=== PATIENT | female | born 1955 | race Caucasian/White ===

== ENCOUNTER → 2018-05-10 10:47 | Outpatient (CLI) | payer OTHER, SELFPAY ==
[2018-05-10 11:53] LABS: Add Manual Diff / Slide Review NO; Basophils Absolute Auto 0 /uL (0-100); Basophils Percent Auto 0.6 % (0-2); Eosinophils Absolute Auto 300 /uL (0-450); Eosinophils Percent Auto 4.4 % (2-4); Hematocrit 38.4 % (36-46); Hemoglobin 12.6 g/dL (12.0-16.0); Lymphocytes Absolute Auto 1800 /uL (1100-4500); Lymphocytes Percent Auto 26.9 % (25-40); Mean Corpuscular HGB Conc 32.7 % (30-36); Mean Corpuscular Hemoglobin 28.6 PG (26-34); Mean Corpuscular Volume 87.4 fL (80-100); Monocytes Absolute Auto 500 /uL (0-900); Monocytes Percent Auto 6.8 % (3-14); Neutrophils Absolute Auto 4100 /uL (1500-7000); Neutrophils Percent Auto 61.3 % (50-75); Platelet Count 224 X10^3/uL (150-400); Red Cell Distribution Width 13.6 % (11.6-14.8); White Blood Cell Count 6.7 X10^3/uL (4.5-11.0)
[2018-05-10 12:54] LABS: Alanine Aminotransferase 26 IU/L (9-52); Albumin 4.4 g/dL (3.5-5.0); Albumin Globulin Ratio 1.6 (1.0-2.8); Alkaline Phosphatase 73 U/L (38-126); Aspartate Aminotransferase 22 IU/L (14-36); BUN Creatinine Ratio 23.3 (6-22); Bilirubin Total 0.4 mg/dL (0.2-1.3); Blood Urea Nitrogen 14 mg/dL (7-17); Calcium 9.4 mg/dL (8.4-10.2); Carbon Dioxide 29 mmol/L (22-32); Chloride 103 mmol/L (98-107); Cholesterol 188 mg/dL (140-199); Estimated Glomerular Filt Rate > 60.0 mL/min (>60); Globulin 2.7 g/dL (1.7-4.1); Glucose 94 mg/dL (80-110); HDL Cholesterol 67 mg/dL (40-60); HEMOLYSIS < 15 (0-50); LDL Cholesterol Calculated 108 mg/dL (<100); Potassium 4.3 mmol/L (3.4-5.1); Sodium 141 mmol/L (137-145); Total Protein 7.1 g/dL (6.3-8.2); Triglycerides 65 mg/dL (35-150)
[2018-05-10 13:18] LABS: TSH w/ Reflex to FT4 1.24 uIU/mL (0.47-4.68)
[2018-05-10 15:43] LABS: Vitamin D 25 Hydroxy (D3) 25.8 ng/mL (30.0-100.0)
== END ==
PROVIDERS: PCP Family Medicine; Visit Provider Family Medicine
DX: G40.909 Epilepsy, unspecified, not intractable, without status epilepticus (principal); M06.9 Rheumatoid arthritis, unspecified; M48.54XA Collapsed vertebra, not elsewhere classified, thoracic region, initial encounter for fracture
CPT/HCPCS: 36415; 80053; 80061; 82306; 84443; 85025

== ENCOUNTER → 2018-06-10 08:01 | Outpatient (CLI) | payer OTHER, SELFPAY ==
--- NOTE | 2018-06-10 | DI.MG.S_ITS ---
BILATERAL DIGITAL SCREENING MAMMOGRAM 3D/2D WITH CAD: 06/10/2018 CLINICAL: Routine screening. Family history of breast cancer. Comparison is made to exams dated: 11/20/2016 mammogram - [facility], 12/17/2015 mammogram - [facility], and 08/14/2014 mammogram - [facility]. The tissue of both breasts is heterogeneously dense. This may lower the sensitivity of mammography. Current study was also evaluated with a Computer Aided Detection (CAD) system. No significant masses, calcifications, or other findings are seen in either breast. There has been no significant interval change. IMPRESSION: NEGATIVE There is no mammographic evidence of malignancy. A 1 year screening mammogram is recommended. This exam was interpreted at Station ID: [id number]. NOTE: For mammograms, a report in lay terms will be sent to the patient. Approximately 15% of breast malignancies will not be visualized mammographically. In the management of a palpable breast mass, a negative mammogram must not discourage biopsy of a clinically suspicious lesion. Electronically Signed By: Jose patrick/mike:06/10/2018 08:50:30 letter sent: Normal Exam ACR BI-RADS Category 1: Negative [id number]
== END ==
PROVIDERS: PCP Family Medicine; Visit Provider Family Medicine
DX: Z12.31 Encounter for screening mammogram for malignant neoplasm of breast (principal); Z80.3 Family history of malignant neoplasm of breast
CPT/HCPCS: 77063; 77067

== ENCOUNTER → 2018-06-24 15:20 | Outpatient (CLI) | payer OTHER, SELFPAY | PROVIDERS: PCP Family Medicine; Visit Provider Family Medicine | DX: M85.88 Other specified disorders of bone density and structure, other site (principal); Z78.0 Asymptomatic menopausal state; M06.9 Rheumatoid arthritis, unspecified; M48.54XA Collapsed vertebra, not elsewhere classified, thoracic region, initial encounter for fracture; Z79.52 Long term (current) use of systemic steroids; Z79.51 Long term (current) use of inhaled steroids | CPT/HCPCS: 77080 ==

== ENCOUNTER 2018-07-08 09:44 | Inpatient (IN) | payer OTHER, SELFPAY ==
[2018-07-03 08:56] VITALS: BMI 30.7
[2018-07-08] VITALS (16 sets, daily range): BP systolic 102–126; BP diastolic 58–76; PULSE 65–83; RESP 10–18; TEMP 36.2–37; O2SAT 91–99; BMI 31.0
--- NOTE | 2018-07-08 10:12 | DI.RAD.S_ITS ---
PROCEDURE: XR KNEE LT 1TO2V INDICATIONS: POST OPERATIVE LEFT KNEE TECHNIQUE: 2 view(s) of the knee acquired. COMPARISON: None. FINDINGS: Bones: Patient is status post knee joint arthroplasty. Hardware components are in expected positions. Visualized bony structures are intact. Soft tissues: Overlying postoperative changes are noted. IMPRESSION: Expected postsurgical change at the left knee, no trauma found. Normal alignment established. Dictated by: Adeel Trujillo M.D. on 07/08/2018 at 14:29 Approved by: Adeel Trujillo M.D. on 07/08/2018 at 14:30
[2018-07-08] MEDS: PREGABALIN 75 MG CAPSULE PO (10:38)
[2018-07-08] MEDS: LACTATED RINGERS 1,000 ML 42 ML IV ×2 (10:38→13:15)
[2018-07-08] MEDS: ACETAMINOPHEN 325 MG TABLET 975 MG PO ×3 (10:38→20:19)
[2018-07-08] MEDS: MIDAZOLAM 2 MG/2 ML VIAL IV (11:30)
[2018-07-08] MEDS: fentaNYL 100 MCG/2 ML INJ IV (11:30)
--- NOTE | 2018-07-08 11:52 | PM.PREOP ---
Pre-operative Note Interval Note History & Physical reviewed/Exam performed by Physician: Yes Changes to H&P: No
--- NOTE | 2018-07-08 11:55 | SUR.PREOP ---
Block start time [1130] . Monitoring initiated and maintained throughout procedure. Oxygen and medications given per anesthesiologist instructions. Patient remained stable throughout procedure, no adverse reactions noted. Block end time [1146].
[2018-07-08] MEDS: CEFAZOLIN 2 GM/100 ML FROZ.PIGGY IV ×2 (12:20→23:54)
[2018-07-08] MEDS: TRANEXAMIC ACID 1,000 MG VIAL 1000 MG INJ ×2 (12:45→13:37)
--- NOTE | 2018-07-08 13:03 | SUR.OPER ---
Supine on padded OR bed. Pillow under head, arms secured on padded armboards <90 degree abduction. Safety belt across torso. Non-operative leg secured with tape over blanket over lower leg. Operative leg secured in DeMayo/Ras positioner.
[2018-07-08] MEDS: BUPIVACAINE 0.25% W/ EPI 30 ML VIAL 60 ML INJ (13:15)
[2018-07-08] MEDS: BUPIVACAINE LIPOSOME 266 MG/20 ML VIAL INJ (13:16)
[2018-07-08] MEDS: MORPHINE 4 MG/ML INJ INJ (13:16)
--- NOTE | 2018-07-08 14:25 | PM.OP.1 ---
Operative Date/Time/Diagnoses Date of procedure: 07/08/18 Time of procedure: 13:55 Pre-op diagnosis: Left knee osteoarthritis Post-op diagnosis: same Procedure & Clinicians Procedure: Left total knee replacement Same procedure as scheduled: Yes Indications: The patient has had progressively worsening left knee pain with radiographic changes consistent with arthritis. Non-operative management has failed and the patient has requested total knee replacement. The risks, benefits and alternatives to surgery were discussed with the patient prior to proceeding. Risks discussed included, but were not limited to, failure to relieve pain, stiffness, infection, nerve damage, deep venous thrombosis, pulmonary embolism, stroke, coma, heart attack, permanent paralysis and , as well as the potential need for eventual revision of the prosthetic. Surgeon: Raad Esparza Vascular Neurologist: Stephenie Carter Click Yes if Unassisted: No Anesthesia Type: General, Peripheral nerve block and Local Operative Notes Findings: Significant lateral and moderate patellofemoral osteoarthritis with relative preservation of the medial compartment. Closure Type: primary Specimen(s): none sent Prosthetic devices, grafts, tissues, transplants, or devices: Implants used in this procedure were manufactured by the [employer] and included the BCS II Journey total knee replacement with a size 5 Oxinium femoral component, a size 5 non porous tibial tray, a 10 mm cross-linked polyethylene tibial insert and a 35 mm oval Edwina II patellar component. Applied: implant(s) Estimated Blood Loss (mL): 50 Blood products transfused: none Tourniquet time (min): 45 Procedure in detail: The patient was seen in the pre-operative area, where the left knee was identified as the operative site and this was marked with my initials. The patient received pre-operative antibiotics, and was taken to the operating room and placed on the operative table in the supine position. After satisfactory anesthesia, a second time worker out was performed. The left leg was encircled with a tourniquet about the proximal thigh, and the leg was prepared from the toes to the tourniquet with ChloroPrep in the usual fashion and draped through sterile drapes. The leg was elevated and exsanguinated with Eschmark bandage and the tourniquet inflated to 250 mmHg pressure. The knee was approached through an approximately 18 cm incision centered over the patella and carried into the knee through a medial parapatellar arthrotomy. The anterior osteophytes and soft tissues were removed. The rotational landmarks of [place]'s line and the transepicondylar axis were marked on the femur with electrocautery, and intramedullary guide holes for the femur and tibia were created. The distal femoral cut was made in 6 degrees of valgus using the intramedullary guide at the primary cut setting. The proximal tibial cut was then made using the intramedullary guide, taking 9 mm of bone off the less involved side. The extension gap was checked and the rotation of the femoral component confirmed with the gap balancing blocks. The anterior, posterior and chamfer cuts were then made. The posterior osteophytes and soft tissues were then removed. The posterior capsule was injected with part of a mixture of 50 ml 0.25% Marcaine mixed with 20 ml Exparel and 4 mg of morphine for post-operative pain control. The remainder of this mixture was injected into the capsule and subcutaneous tissues during cement curing. The tibia was prepared with the rotation set by an extra medullary guide. Trial tibial and femoral components were then placed and the intercondylar notch cut through the femoral trial. Range of motion was 0-135 degrees, with good stability throughout the range. The patella was then cut to accommodate the patellar prosthetic. There was no need for a lateral release. The trials were then removed, and the femoral hole plugged with a bone plug. The bone was prepared with pulsatile lavage, and dried with a sponge. Cement was applied and the final prosthetics placed. Excess cement was removed during and after cement curing. After confirming there was no extruded cement posteriorly, the final tibial insert was placed. The knee was copiously irrigated and the tourniquet deflated. Hemostasis was obtained. The capsule was closed with interrupted # 2 polyester sutures. The subcutaneous layer was closed with 3-0 Vicryl, and the skin with a running 3-0 V-Lock suture and SteriStrips. An Aquacel Ag dressing was applied and the patient was taken to recovery having tolerated the procedure well. Complications: none Condition: stable Disposition: PACU Plan for aftercare: The patient will be maintained on a standard total knee replacement protocol with weight bearing as tolerated. The patient will receive aspirin and sequential compression devices for DVT prophylaxis. The patient will be discharged home when safe for the home environment.
[2018-07-08] MEDS: fentaNYL 100 MCG/2 ML INJ 50 MCG IV ×2 (14:36→14:43)
--- NOTE | 2018-07-08 14:46 | SUR.PHASEI ---
Report given to Kamille Rivera RN pt vital signs are stable.
[2018-07-08] MEDS: LACTATED RINGERS 1,000 ML 125 ML IV ×2 (16:00→23:54)
[2018-07-08] MEDS: HYDROMORPHONE 2 MG TABLET PO ×2 (17:02→20:21)
--- NOTE | 2018-07-08 19:55 | PC.ADMIT ---
Admission Note: pt arrived to floor at 1510. awake and alert drinking tea. denies N/V. complains of pain 4/10 rates tolerable. up ti BR with 2PS did well . pt needs 1 person with FWW. does well with ambulation. updated on plan of care. using IS. oriented to room and hospital procedures. Pt drinking water. ate dinner. cooperative. belongings and call light within reach. S.O in room with pt. will continue to monitor pt for safety. bed alarm on. side rails upx3 for pt safety. Pt daughter in to visit pt. up to br with 1pa. fww. did very well. scds applied. will continue to monitor.
[2018-07-08] MEDS: DOCUSATE 100 MG CAPSULE PO (20:18)
[2018-07-08] MEDS: lamoTRIgine 100 MG TABLET PO (20:19)
[2018-07-08] MEDS: SERTRALINE 50 MG TABLET 100 MG PO (20:19)
[2018-07-08] MEDS: ASPIRIN EC 81 MG TABLET PO (20:19)
[2018-07-09] MEDS: HYDROMORPHONE 2 MG TABLET PO ×4 (00:07→11:14)
--- NOTE | 2018-07-09 00:17 | PC.NURSE ---
Welding Robot Operator Note: 0010: Resting in bed. Vital signs stable. IV in place in lt forearm with LR infusing at 125cc/hr. Pt denies need to get up to bathroom at this time. Lt knee dressing and kanwal wrap cdi. Lt thigh swelling noted. Lt toes pink and warm, with good pedal pulse, all equal to rt side. Pt states she has normal sensation to lt leg, able to wiggle toes, flex ankle and lift leg up. Lt leg elevated on pillow. Pt states her pain is starting to ramp up and is now 4/10. Medicated for pain with Dilaudid 2mg po. SCDs on.
[2018-07-09 03:41] VITALS: BP 113/70; PULSE 64; RESP 18; TEMP 37.2; O2SAT 100
[2018-07-09 05:52] LABS: Hematocrit 30.5 % (36-46); Hemoglobin 10.3 g/dL (12.0-16.0)
[2018-07-09] MEDS: CEFAZOLIN 2 GM/100 ML FROZ.PIGGY IV (06:31)
--- NOTE | 2018-07-09 07:37 | PM.DS.1 ---
History of Present Illness Date Patient Seen: 07/09/18 Time Patient Seen: 07:37 Chief complaint: [id number] Total Knee Arthroplasty Narrative: History and physical are contained in the chart previously completed note. Please refer to that note for this information. Discharge Providers Date of admission: 07/08/18 09:44 Discharge Date: 07/09/18 Primary care physician: Lis Henry DO Consults: 07/08/18 10:27 Consult to Respiratory Therapy Evaluate & Treat Comment: Physician Instructions: Evaluate and treat 07/08/18 15:17 Consult to Discharge Planning Routine Comment: Consult to Physical Therapy Evaluate & Treat Comment: Physician Instructions: postop TKA protocol Consult to Respiratory Therapy Evaluate & Treat Comment: Physician Instructions: Evaluate and treat Discharge provider: Raad Esparza MD Summary Discharge Diagnosis: 1. Left knee osteoarthritis 2. Post hemorrhagic anemia Hospital Course: The patient was admitted to the hospital and taken directly to the operating room on July 08, 2018 where she underwent an uncomplicated left total knee replacement. On postoperative day 1 she was comfortable and felt she was ready for discharge. At the time of this dictation the plan is for discharge after physical therapy. Status at Discharge Cognitive/behavioral status at discharge: oriented Functional status at discharge: uses cane/walker Overall status at discharge: patient is progressing back to baseline Time Spent with Patient Less than 30 minutes Exam Vital Signs (past 8 hours): - 07/08/18 23:55 07/09/18 03:41 Temperature 98.6 F 98.9 F Pulse Rate 65 64 Respiratory Rate 18 18 Blood Pressure 103/61 113/70 Pulse Oximetry 94 100 Oxygen Delivery Method CPAP Oxygen Flow Rate 2 Narrative Exam Narrative: Left knee wound is dressed with no drainage on the bandage. Calf is soft. Light touch and motion are intact in the left lower extremity. Objective Labs Result Diagrams: 07/09/18 04:55 Labs: Laboratory Results - last 24 hr 07/09/18 04:55 Hgb 10.3 L Hct 30.5 L Discharge Plan Discharge Plan Patient Disposition: Home Discharge Med Rec/Prescriptions Prescriptions: New acetaminophen 325 mg Tablet 975 mg PO TID 30 Days Qty: 270 RF: 0 aspirin 81 mg Tablet,Delayed Release (Dr/Ec) 81 mg PO BID 42 Days Qty: 84 RF: 0 hydromorphone 2 mg Tablet 2 mg PO Q3H PRN (Reason: Pain, Severe (7-10)) Qty: 40 RF: 0 hydroxyzine pamoate 25 mg Capsule 25 mg PO Q6HR PRN (Reason: Nausea) Qty: 40 RF: 0 Continued Qvar RediHaler 80 mcg/actuation HFA aerosol breath activated 1 puff INHALATION BID Qty: 10.6 RF: 0 lamotrigine [Lamictal] 100 mg tablet 100 mg PO BID Qty: 180 RF: 3 meloxicam [Mobic] 15 mg tablet 15 mg PO Q DAY Qty: 90 RF: 1 albuterol sulfate [Proventil HFA] 90 mcg/actuation HFA aerosol inhaler 2 puff Inhalation Q4HP PRN (Reason: shortness of breath or wheezing) Qty: 1 RF: 3 cetirizine [Zyrtec] 10 mg Tablet 10 mg PO DAILY RF: 0 sertraline [Zoloft] 100 mg tablet 100 mg PO BEDTIME RF: 0 Follow up/Referrals: Raad Esparza MD [Physician] - 3-5 Days Lis Henry DO [Primary Care Provider] - Provider Discharge Instructions Diet: Diet as Tolerated Activity: Weight bear as tolerated on your left leg Cold/Heat Therapy: Apply ice for 15 minutes of every hour as needed for pain Skin/Wound/Dressing Care Report to your healthcare provider any signs of infection, such as:: chills, fever, night sweats, increased pain, unusual drainage and unusual redness Visit Report/Discharge Packet Instructions: DI for Knee Replacement Stand Alone Forms: Surgery Discharge Discharge Data Primary Care Provider: Lis Henry Attending Provider: Raad Esparza Admit Date/Time: 07/08/18 09:44 Quality VTE Deep Vein Thrombosis/Pulmonary Embolism Present on Admission: No
[2018-07-09 07:42] VITALS: BP 117/70; PULSE 57; RESP 16; TEMP 36.8; O2SAT 96
[2018-07-09] MEDS: ACETAMINOPHEN 325 MG TABLET 975 MG PO (08:59)
[2018-07-09] MEDS: ASPIRIN EC 81 MG TABLET PO (09:00)
[2018-07-09] MEDS: lamoTRIgine 100 MG TABLET PO (09:01)
[2018-07-09] MEDS: DOCUSATE 100 MG CAPSULE PO (09:01)
[2018-07-09] MEDS: MELOXICAM 7.5 MG TABLET 15 MG PO (09:02)
[2018-07-09] MEDS: LORATADINE 10 MG TABLET PO (09:02)
--- NOTE | 2018-07-09 10:29 | PT.IIE ---
Current Diagnoses Unilateral primary osteoarthritis, left knee (07/08/18) Surgery Performed Operation Date: 07/08/18 11:45 Actual Procedures p Total Knee Arthroplasty(Left) - Raad Esparza MD Surgical History (Last Updated 07/03/18 @ 09:21 by Shanon Jacobs, RN) History of surgery on arm (Acute) Hx of tonsillectomy (Acute) S/P foot surgery, right (Acute) Status post bilateral cataract extraction (Acute) Status post cholecystectomy Status post laparoscopy Medical History (Last Updated 07/03/18 @ 09:23 by Shanon Jacobs RN) Anemia (Acute) Arthritis (Acute) Asthma (Acute) Bronchitis (Acute) Easy bruisability (Acute) Endometriosis (Acute) Fracture of sacrum (Acute) Head injury (Acute ~2014) Low back pain (Acute) Migraines (Acute) Neck pain (Acute) Numbness (Acute) Pneumonia (Acute) RLS (restless legs syndrome) (Acute) Rheumatoid arthritis in remission (Acute) Sleep apnea (Acute) Thoracic spine fracture (Acute) Tricuspid valve regurgitation (Acute) Physical Therapy Inpatient Evaluation/Re-Eval M1 PT/OT-IP Prior Functional Status Start: 07/09/18 08:18 Freq: NEEDED Status: Active Protocol: Document 07/09/18 08:20 (Rec: 07/09/18 09:03 [id number]) Medical Review Prior Functional Status Medical History Reviewed Yes Diet/Fluid Consistency Regular Communication No communication deficits noted. Able to make needs known. Mobility and Gait Pt is an indepedent ambulator at home and community without AD. Stated difficult time to do stair with step to pattern. Activities of Daily Living and IADL's Independent with ADLs and IADLs. Able to drive, do banking and doctor appt. Social History Household Members significant other Living Arrangements House Number of Floors (Floors) One Floor Number of Stairs To Enter/Railing? 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 He is able to drive and will able to pick pt up to home upon d/c. Pt states he will be able to assist pt for meal prep, some ADLs and IADLs . M2 PT-IP Current Condition Start: 07/09/18 08:18 Freq: NEEDED Status: Active Protocol: Document 07/09/18 08:20 (Rec: 07/09/18 09:03 [email or web address]) Physical Therapy Current Condition Current Condition Evaluation Date 07/09/18 Treatment Diagnosis L TKA, impaired gait and activity tolerance Onset Date 07/08/18 Weight Bearing Status Weight Bearing Status Weight Bear as Tolerated M3 PT-IP Subjective Start: 07/09/18 08:18 Freq: NEEDED Status: Active Protocol: Document 07/09/18 08:20 HH (Rec: 07/09/18 09:03 [email or web address]) Subjective Physical Therapy Visit Type Type Initial Evaluation Visit Start Time 08:20 Visit Stop Time 08:50 Total Visit Minutes 30 Notes Pt just received pain meds 10 mins ago upon assessment. Number of HEALTH AIDE Visits 0 Physical Therapy Visit Comments Patient Comments 'I want to try walking with PT . Patient Goals To return home with Therapy Pain Assessment Pain When Pain Assessed During Mobility Pain Present Pain Present Pain Reported Location back, hands, lt knee Intensity 5 Scale Used Numeric (1 - 10) Description Aching Acute Pain Management Techniques Modification of Treatment Re-positioning Timing of Activity with Medications M4 PT-IP Mobility and Gait Start: 07/09/18 08:18 Freq: NEEDED Status: Active Protocol: Document 07/09/18 08:20 (Rec: 07/09/18 10:29 [id number]) PT-Bed Mobility Assessment Supine to Sit Supine to Sit Independent Scooting Scooting to Edge of Bed Independent Scooting Up and Down in Bed Independent PT-Transfer Assessment Sit to and From Stand Sit to and from Stand Standby Assistance Use of Upper Extremities Equipment Transfer Assistive Device Gait Belt Front Wheeled Walker Orthotic/Prosthetic Devices or Brace: No Transfers Transfer Destination Bed Chair Transfer Technique Stand Step Pivot Transfer Ability Level of Assist Standby Assistance Use of Upper Extremities Comments Mobility Comments Pt was able to perform supine to long sit and pivot her LLE to EOB with RLE assistance. She then stood up multiple times from chair/EOB with stagger stance and FWW. Pt demonstrates safe transfer with both UEs on walker and chair surface and proper feet placements. Gait Assessment Gait Gait Assistance Required: Standby Assistance Distance (Feet) 200 Able to Maintain Weight Bearing Status Yes During Gait Assistive Devices Assistive Device Gait Belt Front Wheeled Walker Orthotic/Prosthetic Devices or Brace: No Gait Deviations General Gait Pattern Antalgic Decreased Stride Length Decreased Feet Clearance Step-to Gait Factors Limiting Gait Function Factors Limiting Gait Function Decreased Activity Tolerance Decreased Strength Limited Range of Motion Pain Poor Balance Comments Gait Comments Pt amb approx 200 feet around nursing station with FWW SBA. Pt used step to L antalgic pattern due to pain. She denies increase in pain but mostly 5/10 during mobility. Pt states feel good generally and safe. Did not show signs of distress and LOB. PT-Balance Assessment Sitting Balance and Reactions Static Sitting Balance Ability Normal Dynamic Sitting Balance Ability Normal Standing Balance and Reactions Static Standing Balance Ability Good Dynamic Standing Balance Ability Good Device Used FWW M5 PT-IP Objective Assessments Start: 07/09/18 08:18 Freq: NEEDED Status: Active Protocol: Document 07/09/18 08:20 (Rec: 07/09/18 10:29 [id number]) Orientation Orientation/Cognition Level of Alertness Alert Orientation Name Age Birthday Month Date Year Day of Week Place Situation Language Function Ability No Deficits Noted Safety Awareness Understands Safety Issues Memory Description No Deficits Noted Gross Range of Motion Upper Extremity ROM Assessment Within Functional Limits Lower Extremity ROM Assessment Left Impaired Impairments knee AROM 3-80 degrees Strength Upper Extremity Strength Assessment Within Functional Limits Lower Extremity Strength Assessment Left Impaired Hip 4/5 Knee 3/5 Ankle 4/5 Coordination Assessment Gross Coordination Gross Coordination WNL Assessment Finger to Nose Test Normal Performance Pronation/Supination Test Normal Performance Sensation Assessment Sensation Gross Sensation WNL Light Touch Intact Proprioception (Position) Intact Muscle Tone Muscle Tone WNL Yes M6 PT-IP Treatment Start: 07/09/18 08:18 Freq: NEEDED Status: Active Protocol: Document 07/09/18 08:20 (Rec: 07/09/18 10:29 [id number]) Physical Therapy Treatment Exercises Exercises Ankle Pumps Gluteal Sets Quad Sets Heel Slides Straight Leg Raises Education Education Provided Precautions Weight Bearing Status Post-Op Packet Safety Other Treatments Other Treatment Performed standing L TKE with FWW M7 PT-IP Assessment and Plan Start: 07/09/18 08:18 Freq: NEEDED Status: Active Protocol: Document 07/09/18 08:20 HH (Rec: 07/09/18 10:29 HH [id number]) PT Summary Assessment and Plan Potential Rehabilitation Potential Excellent Status of Condition at Evaluation Stable Summary Impairments Pain ROM Strength Balance Bed Mobility Transfers Gait Activity Tolerance Assessment Summary Pt is low complexity and POD # 2 L TKA due to chronic knee pain. Pt did fairly well during mobility assessment who is able to perform bed mobility, transfer, and amb with FWW mod I/ SBA. Pt appears very safe and steady and did not show signs of LOB and acute distress. Pt will be safe to d/c home with and participate outpatient PT at [facility] to improve overall mobility once she is medically stable. Goals Bed Mobility Goal Independent Transfer Goal Independent Front Wheeled Walker Gait Goal Independent Front Wheel Walker Gait Distance 300 Days to Meet Goals 2 Frequency of Treatment Frequency Of Treatment Twice a Day Treatment Plan Physical Therapy Treatment Plan Bed Mobility Training Transfer Training Gait Training Therapeutic Exercise Balance Retraining Post Op Education Discharge Planning Hot or Cold Pack Other Recommendations and Next Treatment gait training as stephen Focus Recommendations To Nursing Amount of Assist Needed Standby Assistance Discharge Recommendations PT Discharge Recommendations Home with Assistance Outpatient PT
--- NOTE | 2018-07-09 11:52 | PC.NURSE ---
Day Shift- Pt A&OX4, able to make needs known. States prn Dilaudid 2mg prn effective for pain management. Pain 5-6/10 this AM, decreased to 3/10. PRN dose given prior to discharge for comfort home. Prescriptions already filled by S.O. and are at home. Pt given all belongings back. No further voiced concerns. OT by PT to be discharged. Discharge summary packet reviewed by student development dean observed by LUIS Thompson Coordinator. Pt's Kevin Cooper present to drive pt home. Pt left unit at 1146 via wheelchair with all belongings and in no distress.
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
== END 2018-07-09 11:46 | disposition home or self-care (01) | DRG 470 ==
PROVIDERS: Admitting Provider Orthopaedic Surgery; PCP Family Medicine; Visit Provider Orthopaedic Surgery
PROC: 0SRD0JZ Replacement of Left Knee Joint with Synthetic Substitute, Open Approach (ICD-10-PCS; CPT 27447; principal; 2018-07-08 11:45)
DX: M17.12 Unilateral primary osteoarthritis, left knee (principal); G47.33 Obstructive sleep apnea (adult) (pediatric); M06.9 Rheumatoid arthritis, unspecified; F32.9 Major depressive disorder, single episode, unspecified; J45.909 Unspecified asthma, uncomplicated
CPT/HCPCS: 36415; 64447; 73560; 85014; 85018; 94760; 97116; 97161; C1776; C9290; J0690; J1100; J1170; J2250; J2270; J2405; J2704; J3010

== ENCOUNTER → 2018-10-09 12:38 | Outpatient (CLI) | payer OTHER, SELFPAY ==
[2018-07-08 15:39] VITALS: BMI 31.0
--- NOTE | 2018-10-09 12:39 | DI.RAD.S_ITS ---
PROCEDURE: XR HAND RT MIN 3V INDICATIONS: right hand pain TECHNIQUE: 3 views of the hand(s) acquired. COMPARISON: None. FINDINGS: Bones: No definite acute fractures or dislocations, but the quality of visualization of the articular margins is somewhat limited by moderately severe to severe degenerative osteoarthritis with osteophytic spurring overlying the distal interphalangeal joints, best seen at the second third and fourth digits. At the third digit distally along the dorsal margin of the arthritic spurring there is a slight lucency, seen on the oblique and lateral view, potentially a site of nondisplaced fracture, chronicity uncertain. Carpal bones are normally aligned. No suspicious bony lesions. Soft tissues: No suspicious soft tissue calcifications. IMPRESSION: Moderately severe degenerative osteoarthritis overall with relatively prominent osteophytic spurring as discussed above. A single focus of lucency is seen at the dorsal aspect of the spurring projecting in approximately from the distal inner phalangeal articular margin, potentially a manifestation of old or new fracture. This is nondisplaced. Dictated by: Adeel Trujillo M.D. on 10/09/2018 at 12:54 Approved by: Adeel Trujillo M.D. on 10/09/2018 at 12:56
== END ==
PROVIDERS: PCP Family Medicine; Visit Provider Physician Assistant
DX: M79.641 Pain in right hand (principal); M19.041 Primary osteoarthritis, right hand
CPT/HCPCS: 73130

== ENCOUNTER → 2018-10-14 16:32 | Outpatient (CLI) | payer OTHER, SELFPAY ==
[2018-07-08 15:39] VITALS: BMI 31.0
[2018-10-14 17:34] LABS: Blood Urea Nitrogen 27 mg/dL (7-17); Calcium 10.2 mg/dL (8.4-10.2); Carbon Dioxide 29 mmol/L (22-32); Chloride 104 mmol/L (98-107); Estimated Glomerular Filt Rate > 60.0 mL/min (>60); Glucose 90 mg/dL (80-110); HEMOLYSIS < 15 (0-50); Potassium 4.6 mmol/L (3.4-5.1); Sodium 140 mmol/L (137-145)
[2018-10-14 17:36] LABS: Add Manual Diff / Slide Review NO; Basophils Absolute Auto 100 /uL (0-100); Basophils Percent Auto 0.6 % (0-2); Eosinophils Absolute Auto 400 /uL (0-450); Eosinophils Percent Auto 4.7 % (2-4); Hematocrit 37.3 % (36-46); Hemoglobin 12.2 g/dL (12.0-16.0); Lymphocytes Absolute Auto 2200 /uL (1100-4500); Mean Corpuscular HGB Conc 32.8 % (30-36); Mean Corpuscular Hemoglobin 28.2 PG (26-34); Mean Corpuscular Volume 86.2 fL (80-100); Monocytes Absolute Auto 600 /uL (0-900); Neutrophils Absolute Auto 5300 /uL (1500-7000); Neutrophils Percent Auto 61.7 % (50-75); Platelet Count 210 X10^3/uL (150-400); Red Blood Cell Count 4.32 X10^6/uL (4.0-5.2); Red Cell Distribution Width 14.4 % (11.6-14.8); White Blood Cell Count 8.6 X10^3/uL (4.5-11.0)
== END ==
PROVIDERS: PCP Family Medicine; Visit Provider Family Medicine
DX: Z51.81 Encounter for therapeutic drug level monitoring (principal); Z79.1 Long term (current) use of non-steroidal anti-inflammatories (NSAID); D62 Acute posthemorrhagic anemia
CPT/HCPCS: 36415; 80048; 85025

== ENCOUNTER → 2019-04-01 12:27 | Outpatient (CLI) | payer OTHER, SELFPAY ==
[2018-07-08 15:39] VITALS: BMI 31.0
[2019-04-01 17:15] LABS: Vitamin D 25 Hydroxy (D3) 35.5 ng/mL (30.0-100.0)
== END ==
PROVIDERS: PCP Family Medicine; Referring Provider Family Medicine; Visit Provider Family Medicine
DX: M48.54XA Collapsed vertebra, not elsewhere classified, thoracic region, initial encounter for fracture (principal)
CPT/HCPCS: 36415; 82306

== ENCOUNTER → 2019-04-07 09:18 | Outpatient (CLI) | payer OTHER, SELFPAY ==
[2018-07-08 15:39] VITALS: BMI 31.0
[2019-04-07 10:20] LABS: Alanine Aminotransferase 18 IU/L (<35); Albumin Globulin Ratio 1.6 (1.0-2.8); Alkaline Phosphatase 71 U/L (38-126); Aspartate Aminotransferase 21 IU/L (14-36); Bilirubin Total 0.3 mg/dL (0.2-1.3); Blood Urea Nitrogen 22 mg/dL (7-17); Calcium 9.2 mg/dL (8.4-10.2); Carbon Dioxide 28 mmol/L (22-32); Chloride 106 mmol/L (98-107); Estimated Glomerular Filt Rate > 60.0 mL/min (>60); Globulin 2.5 g/dL (1.7-4.1); Glucose 101 mg/dL (80-110); HEMOLYSIS < 15 (0-50); Potassium 3.9 mmol/L (3.4-5.1); Sodium 140 mmol/L (137-145); Total Protein 6.5 g/dL (6.3-8.2)
== END ==
PROVIDERS: PCP Family Medicine; Referring Provider Family Medicine; Visit Provider Family Medicine
DX: Z79.1 Long term (current) use of non-steroidal anti-inflammatories (NSAID) (principal); Z79.899 Other long term (current) drug therapy
CPT/HCPCS: 36415; 80053

== ENCOUNTER → 2019-04-24 10:17 | Outpatient (CLI) | payer OTHER, SELFPAY ==
[2018-07-08 15:39] VITALS: BMI 31.0
--- NOTE | 2019-04-24 10:20 | DI.US.S_ITS ---
LIMITED ULTRASOUND OF RIGHT BREAST: 04/24/2019 CLINICAL: Palpable right breast lump by physician. Pain. Comparison is made to exams dated: 04/24/2019 mammogram, 06/10/2018 mammogram, and 11/20/2016 mammogram - [facility]. Real-time ultrasound of the right breast lower inner and upper outer quadrants was performed on the area of interest. IMPRESSION: NEGATIVE There is no sonographic evidence of malignancy. There is no abnormality seen in the right breast to correspond with the palpable abnormality and pain in the upper outer quadrant, however, clinical followup is recommended. There is no abnormality seen in the right breast to correspond with the palpable abnormality in the lower inner quadrant, however, clinical followup is recommended. A 1 year screening mammogram is recommended. This exam was interpreted at Station ID: [id number]. Electronically Signed By: Bharat lamas/mike:04/24/2019 13:47:14 letter sent: Clinical Evaluation Ultrasound BI-RADS: 1 Negative
--- NOTE | 2019-04-24 10:20 | DI.MG.S_ITS ---
BILATERAL DIGITAL DIAGNOSTIC MAMMOGRAM 3D/2D: 04/24/2019 CLINICAL: Right breast pain and lump. Comparison is made to exams dated: 06/10/2018 mammogram, 11/20/2016 mammogram - [facility], and 12/17/2015 mammogram - [facility]. The tissue of both breasts is heterogeneously dense. This may lower the sensitivity of mammography. No significant masses, calcifications, or other findings are seen in either breast. IMPRESSION: INCOMPLETE: NEEDS ADDITIONAL IMAGING EVALUATION There is no abnormality seen in the right breast to correspond with the pain at 11 o'clock, however, ultrasound is recommended. There is no abnormality seen in the right breast to correspond with the palpable abnormality at 12 o'clock, however, ultrasound is recommended. There is no abnormality seen in the right breast to correspond with the palpable abnormality at 5 o'clock, however, ultrasound is recommended. This exam was interpreted at Station ID: [id number]. NOTE: For mammograms, a report in lay terms will be sent to the patient. Approximately 15% of breast malignancies will not be visualized mammographically. In the management of a palpable breast mass, a negative mammogram must not discourage biopsy of a clinically suspicious lesion. Electronically Signed By: Bharat lamas/mike:04/24/2019 11:14:47 ACR BI-RADS Category 0: Incomplete [id number]
== END ==
PROVIDERS: PCP Family Medicine; Referring Provider Family Medicine; Visit Provider Family Medicine
DX: R92.8 Other abnormal and inconclusive findings on diagnostic imaging of breast (principal); N64.4 Mastodynia; N63.10 Unspecified lump in the right breast, unspecified quadrant
CPT/HCPCS: 76642; 77066; G0279

== ENCOUNTER → 2019-10-09 11:48 | Outpatient (CLI) | payer OTHER, SELFPAY ==
[2019-09-24 09:17] VITALS: BMI 31.0
[2019-10-09 13:10] LABS: Alanine Aminotransferase 17 IU/L (<35); Albumin 4.5 g/dL (3.5-5.0); Alkaline Phosphatase 85 U/L (38-126); Aspartate Aminotransferase 22 IU/L (14-36); BUN Creatinine Ratio 21.1 (6-22); Bilirubin Total 0.4 mg/dL (0.2-1.3); Blood Urea Nitrogen 12 mg/dL (7-17); Calcium 9.6 mg/dL (8.4-10.2); Carbon Dioxide 26 mmol/L (22-32); Chloride 105 mmol/L (98-107); Cholesterol 191 mg/dL (140-199); Estimated Glomerular Filt Rate > 60.0 mL/min (>60); Globulin 2.3 g/dL (1.7-4.1); Glucose 155 mg/dL (80-110); HDL Cholesterol 69 mg/dL (40-60); HEMOLYSIS < 15 (0-50); LDL Cholesterol Calculated 98 mg/dL (<100); Potassium 4.2 mmol/L (3.4-5.1); Sodium 139 mmol/L (137-145); Total Protein 6.8 g/dL (6.3-8.2); Triglycerides 120 mg/dL (35-150)
== END ==
PROVIDERS: PCP Family Medicine; Referring Provider Family Medicine; Visit Provider Family Medicine
DX: G40.909 Epilepsy, unspecified, not intractable, without status epilepticus (principal); R45.89 Other symptoms and signs involving emotional state; Z79.1 Long term (current) use of non-steroidal anti-inflammatories (NSAID)
CPT/HCPCS: 36415; 80053; 80061; 84443

== ENCOUNTER → 2019-10-21 10:19 | Outpatient (CLI) | payer OTHER, SELFPAY ==
[2019-09-24 09:17] VITALS: BMI 31.0
[2019-10-21 12:01] LABS: Hemoglobin A1C% w Est Avg Glu 5.9 % (4.0-6.0)
[2019-10-21 12:22] LABS: Glucose 86 mg/dL (80-110)
== END ==
PROVIDERS: PCP Family Medicine; Referring Provider Family Medicine; Visit Provider Family Medicine
DX: R73.01 Impaired fasting glucose (principal)
CPT/HCPCS: 36415; 82947; 83036

== ENCOUNTER → 2020-02-12 09:35 | Outpatient (CLI) | payer OTHER, MEDICAID, SELFPAY ==
[2019-09-24 09:17] VITALS: BMI 31.0
[2020-02-12 11:22] LABS: COVID19 -Nasal RAPID Negative (Negative)
== END ==
PROVIDERS: PCP Family Medicine; Visit Provider Surgery
DX: Z01.812 Encounter for preprocedural laboratory examination (principal); Z20.828 Contact with and (suspected) exposure to other viral communicable diseases
CPT/HCPCS: 87635; C9803

== ENCOUNTER 2020-02-13 08:57 | Day surgery (SDC) | payer OTHER, MEDICAID, SELFPAY ==
[2019-09-24 09:17] VITALS: BMI 31.0
[2020-02-13] VITALS (7 sets, daily range): BP systolic 91–113; BP diastolic 56–75; PULSE 68–81; RESP 9–16; TEMP 36.2–36.4; O2SAT 94–97; BMI 30.7
[2020-02-13] MEDS: SODIUM CHLORIDE 0.9% 1,000 ML 200 ML IV (09:53)
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
[2020-02-13] MEDS: MIDAZOLAM 5 MG/5 ML VIAL IV (11:09)
[2020-02-13] MEDS: fentaNYL 250 MCG/5 ML INJ IV (11:09)
--- NOTE | 2020-02-13 11:20 | PM.OP.ENDO ---
Operative Date/Time/Diagnoses Date of procedure: 02/13/20 Time of procedure: 11:20 Pre-op diagnosis: Personal history of colon polyps Post-op diagnosis: other (No new colon polyps on this exam) Procedure & Clinicians Study performed: Colonoscopy Procedural sedation performed by the endoscopist Same procedure as scheduled: Yes Indications: Personal history of colon polyps, due for surveillance colonoscopy Surgeon: Katarina Alvarado Procedure Notes SCOAP/Timeout: Performed Procedure in detail: The patient was brought to the room and placed in left lateral decubitus position with all bony prominences padded. A time-out was performed and then the patient was given procedural sedation starting with 4 mg of Versed and 100 mcg of fentanyl. A total of 8 mg of Versed and 250 micro g of fentanyl were given for the entire procedure. Vitals were monitored throughout the procedure and remained stable. Once adequately sedated, the procedure was begun. A rectal exam was performed revealing no abnormalities. The colonoscope was then introduced to the rectum and advanced to the cecum in the usual fashion. The colon was very tortuous, required multiple maneuvers to reach the cecum safely including using the stiffener, and counter pressure on the abdominal wall. The cecum was identified by the appendiceal orifice, the mucosal tri-fold, and the ileocecal valve. The scope was then retracted while rotating side to side and examining each mucosal fold. No polyps or other abnormalities were seen on the mucosa of the colon. At the conclusion of the procedure retroflexion was performed and small grade 1-2 internal hemorrhoids without stigmata of bleeding were seen. The scope was then withdrawn from the rectum the procedure was concluded. The patient tolerated the procedure well and was transferred to the PACU in stable condition. Scope withdrawal time: 9 Sedation minutes: 32 Findings: other findings (Normal colon) Specimen(s): none sent Complications: none Impression: No polyps found on today's exam Post-procedure Recommendations: Colonscopy in 5 years (Due to personal history of colon polyps) Follow up: as needed Disposition: PACU
--- NOTE | 2020-02-13 11:31 | SUR.PHASEI ---
1130 Arousing spontaneously, denies discomfort, O2 decreased to 2LNP
--- NOTE | 2020-02-13 11:45 | SUR.PHASEI ---
HOB elevated, drinking water, has stated several times that the procedure was very uncomfortable and asks why. Denies pain in PACU.
== END 2020-02-13 12:33 | disposition home or self-care (01) ==
PROVIDERS: PCP Family Medicine; Referring Provider Surgery; Visit Provider Surgery
PROC: 0DJD8ZZ Inspection of Lower Intestinal Tract, Via Natural or Artificial Opening Endoscopic (ICD-10-PCS; CPT 45378; principal; 2020-02-13 10:00)
DX: Z12.11 Encounter for screening for malignant neoplasm of colon (principal); Z86.010 Personal history of colon polyps; F41.9 Anxiety disorder, unspecified; F32.9 Major depressive disorder, single episode, unspecified; D64.9 Anemia, unspecified; K64.0 First degree hemorrhoids
CPT/HCPCS: 45378; 99152; 99153; J2250; J3010

== ENCOUNTER → 2020-03-02 11:58 | Outpatient (CLI) | payer OTHER, MEDICAID, SELFPAY ==
[2019-09-24 09:17] VITALS: BMI 31.0
[2020-03-02 12:06] LABS: Bacteria Urine None Seen; RBC Urine None Seen (0-5/HPF)
[2020-03-02 12:23] LABS: Appearance Urine UA CLEAR; Bilirubin Urine UA NEGATIVE (NEGATIVE); Color Urine UA YELLOW; Glucose Urine UA NEGATIVE (Negative); Ketones Urine UA NEGATIVE (NEGATIVE); Leukocyte Esterase Urine UA TRACE (NEGATIVE); Nitrite Urine UA NEGATIVE (Negative); Occult Blood Urine UA TRACE-INTACT (Negative); Protein Urine UA NEGATIVE (Negative); Specific Gravity Urine UA 1.015 (1.000-1.035); Urobilinogen Urine UA 0.2 E.U./dL (0.2)
[2020-03-02 12:30] LABS: Amorphous Sediment Urine 1+; Culture Indicated Urine Specimen Cultured; WBC Urine 0-1/HPF (0-5/HPF)
== END ==
PROVIDERS: PCP Family Medicine; Referring Provider Family Medicine; Visit Provider Family Medicine
DX: R30.0 Dysuria (principal)
CPT/HCPCS: 81001; 87086

== ENCOUNTER → 2020-03-09 10:17 | Outpatient (CLI) | payer OTHER, MEDICAID, SELFPAY ==
[2019-09-24 09:17] VITALS: BMI 31.0
[2020-03-09 11:39] LABS: BUN Creatinine Ratio 30.9 (6-22); Blood Urea Nitrogen 17 mg/dL (7-17); Carbon Dioxide 29 mmol/L (22-32); Chloride 105 mmol/L (98-107); Estimated Glomerular Filt Rate > 60.0 mL/min (>60); Glucose 91 mg/dL (80-110); HEMOLYSIS < 15 (0-50); Potassium 4.3 mmol/L (3.4-5.1); Sodium 138 mmol/L (137-145)
== END ==
PROVIDERS: PCP Family Medicine; Referring Provider Family Medicine; Visit Provider Family Medicine
DX: R73.01 Impaired fasting glucose (principal)
CPT/HCPCS: 36415; 80048; 83036

== ENCOUNTER → 2020-04-21 08:00 | Outpatient (CLI) | payer OTHER, MEDICAID, SELFPAY ==
[2019-09-24 09:17] VITALS: BMI 31.0
--- NOTE | 2020-04-21 08:01 | DI.ECHO.S_ITS ---
[facility]---------+ [facility] +---------+ : : [address] : [place] : : : : [id number] : : : : Phone: [phone]+ Echocardiogram Report + + :Name: JERMAINE CAVAZOS Study Date: 04/21/2020 Height: 67.5 in: :[facility] ReadingLocation: Weight: 205 lb : : Gender: Female BSA: 2.1 m2 : :: 1955 Age: 64 yrs BP: 147/90 mmHg: :Reason For Study: PFO, TRICUSPID REGURGITATION : :Ordering Physician: SHERRILL, : :TRINITY Performed By: Elena Baker : :Referring: TRINITY MCCARTNEY : + + Interpretation Summary Left ventricular systolic function remains normal with an estimated ejection fraction of 60 to 65% without any focal wall motion abnormality. Diastolic function is likely normal with probable normal filling pressures. There has been no significant change since the previous study. The right ventricle appears normal and unchanged from the previous study. Right ventricular systolic pressure is likely around 24 mmHg with a CVP of 3 mmHg, and is likely somewhat lower compared to the previous study. Both atria are moderately enlarged but unchanged from the previous exam. The interatrial septum appears intact without any evidence for a PFO or left to right shunting. A previous TIM on 03/23/2014 confirmed the absence of any PFO or ASD. The mitral valve appears normal with mild to moderate mitral regurgitation that is somewhat more prominent compared to the previous study. There is mild tricuspid regurgitation that is less prominent compared to the previous exam. There are no other valvular abnormalities. The ascending aorta is mildly enlarged and measures slightly larger compared to the previous study. Procedure: A two-dimensional transthoracic echocardiogram with color flow and Doppler was performed. The study quality was technically adequate. Comparison is made with the echocardiogram of 02/05/2014. The patient was in sinus rhythm with heart rates between 62-74 bpm during the exam. Left Ventricle: The left ventricle appears normal in size, wall thickness, and systolic function without any focal wall motion abnormalities. The ejection fraction is estimated to be 60-65%. Diastolic parameters suggest probable normal left ventricular diastolic function and normal filling pressures. There has been no significant change since the previous study. Right Ventricle: The right ventricle is normal in size and function. This is unchanged compared to the previous study. Atria: Both atria are moderately dilated. This is unchanged compared to the previous study. The interatrial septum grossly appears intact with no obvious evidence for an atrial septal defect. There is no Doppler evidence for an interatrial shunt. Mitral Valve: The mitral valve leaflets appear normal. There is no evidence of stenosis, fluttering, or prolapse. There is mild to moderate mitral regurgitation. This is more prominent compared to the previous study. Aortic Valve: The aortic valve is trileaflet. The aortic valve opens well. There is no aortic valve stenosis. No aortic regurgitation is present. Tricuspid Valve: The tricuspid valve is normal in structure and function. There is mild tricuspid regurgitation. This is less prominent compared to the previous study. The right ventricular systolic pressure is estimated to be at least 24 mmHg based on an estimated right atrial pressure of 3 mm Hg. Pulmonic Valve: The pulmonic valve is not well seen, but is grossly normal. There is no pulmonic valvular regurgitation. Great Vessels: The aortic root is normal size. The ascending aorta is mildly enlarged. This is slightly larger compared to the previous study. The IVC is of normal diameter and collapses greater than 50% with a sniff. This suggests a low right atrial pressure of 3 mm Hg. Pericardium/ Pleura There is no pericardial effusion. There is no pleural effusion. MMode/2D Measurements & Calculations LVIDd: 5.0 cm LVOT diam: 2.1 cm LVIDs: 3.2 cm Ao root diam: 3.3 cm FS: 35.7 % asc Aorta Diam: 3.6 cm EPSS: 0.46 cm Ao Arch Diam (Prox Trans): 3.5 cm IVSd: 1.00 cm LVPWd: 1.0 cm LV barrera. diameter/BSA (cm/m^2): 2.5 LV sys. diameter/BSA (cm/m^2): 1.6 LA A2 area: 23.7 cm2 RA long axis: 5.2 cm LA A4 area: 22.4 cm2 RA area: 24.2 cm2 LA length (vol): 5.2 cm RA vol: 96.0 ml LA vol: 86.2 ml RA : 46.7 ml/m2 LA vol index: 42.0 ml/m2 IVC diam: 2.0 cm RVD1 (basal): 3.3 cm TAPSE: 2.1 cm Doppler Measurements & Calculations Ao V2 max: 124.7 cm/sec LVOT Max Satya: 121.8 cm/sec Ao V2 mean: 87.0 cm/sec LV V1 max P.9 mmHg Ao max P.2 mmHg LV V1 VTI: 23.8 cm Ao mean P.4 mmHg ROSALVA(I,D): 3.3 cm2 Ao V2 VTI: 25.2 cm ROSALVA(V,D): 3.4 cm2 sev ratio: 0.95 ROSALVA indexed to BSA (cm^2/m^2): 1.6 MV E max satya: 88.9 cm/sec TR max satya: 227.2 cm/sec MV A max sayta: 68.8 cm/sec TR max P.6 mmHg MV E/A: 1.3 PA V2 max: 61.7 cm/sec Med Peak E' Satya: 7.6 cm/sec PA V2 mean: 42.4 cm/sec E/E' med: 11.8 PA mean P.81 mmHg Lat Peak E' Satya: 9.1 cm/sec PA pr(Accel): 7.1 mmHg E/E' lat: 9.7 E/e' average: 10.8 MV dec time: 0.19 sec SV(LVOT): 83.3 ml Reading Physician:03:32 PM
== END ==
PROVIDERS: PCP Family Medicine; Referring Provider Family Medicine; Visit Provider Family Medicine
DX: Z01.812 Encounter for preprocedural laboratory examination (principal); Z20.822 Contact with and (suspected) exposure to COVID-19; I08.1 Rheumatic disorders of both mitral and tricuspid valves; I77.89 Other specified disorders of arteries and arterioles; Q21.1 Atrial septal defect; R07.89 Other chest pain; R41.89 Other symptoms and signs involving cognitive functions and awareness
CPT/HCPCS: 87635; 93306

== ENCOUNTER → 2020-04-21 09:27 | Outpatient (CLI) | payer OTHER, MEDICAID, SELFPAY ==
[2019-09-24 09:17] VITALS: BMI 31.0
[2020-04-21 11:35] LABS: COVID19 -Nasal RAPID Negative (Negative)
== END ==
PROVIDERS: PCP Family Medicine; Visit Provider Nurse Practitioner Family
DX: Z01.812 Encounter for preprocedural laboratory examination (principal); Z20.822 Contact with and (suspected) exposure to COVID-19
CPT/HCPCS: 87635

== ENCOUNTER → 2020-04-22 09:11 | Outpatient (CLI) | payer OTHER, MEDICAID, SELFPAY ==
[2019-09-24 09:17] VITALS: BMI 31.0
--- NOTE | 2020-04-22 14:37 | PM.TREADMILL ---
Cardiac Stress Test Report Referral & Results Date Patient Seen: 04/22/20 Requesting provider: Lis Henry Indication: PFO/tricuspid regurgitation Rest ECG: Unremarkable Procedure Note: Today following both written and verbal informed consent the patient was exercised according to a standard Navneet protocol patient went for a total of 6 minutes 0 seconds achieving a maximum heart rate of 140 maximum systolic blood pressure of 168. This is approximately 7.0 METS. Exercise was terminated at this point because of targets were met. Patient was also given Cardiolite through a previously started Hep-Lock IV by the diagnostic imaging staff approximately 1 minute prior to the cessation of exercise. There are nonspecific ST-T segment changes during exercise with lots of [id number] variability that rapidly returned to baseline with cessation of activity suggesting nonischemic nature No dysrhythmia Functional week impairment rates about-10% sedentary scale Normal heart rate and blood pressure response to exercise Impression: No ECG evidence of ischemia Better than average exercise capacity Please see perfusion imaging report as well. Please note: Actual ECG tracings can be found in the PACS system.
--- NOTE | 2020-04-22 18:50 | DI.NM.S_ITS ---
DATE OF SERVICE: 04/22/2020 PROCEDURE PERFORMED: Exercise treadmill stress and rest myocardial perfusion imaging with gating to assess ejection fraction and regional wall motion. ORDERING PROVIDER: Dr. Lis Henry. INDICATIONS: The patient is a 64-year-old female with rheumatoid arthritis and chest pressure. EXERCISE TREADMILL TESTING: The patient was able to exercise for 6 minutes 1 second on a standard Navneet protocol suggesting mildly impaired exercise capacity with an DONNELL of +7%. She had a normal heart rate and blood pressure response, achieving a maximum heart rate of 140 BPM (89% of her predicted maximum). She had no chest discomfort or chest pressure. Her resting ECG shows sinus rhythm with normal ST segments. With stress, there is mild, nonspecific ST-segment depression. There were no arrhythmias. At 5 minutes of exercise at a heart rate of 140, BPM, 26.7 millicuries of technetium-99m Myoview was injected. The patient was imaged 15 minutes later using a gated SPECT acquisition protocol. Earlier in the day while at rest, she was injected with 14.1 millicuries of technetium-99m Myoview and was imaged 30 minutes later, again using a gated SPECT acquisition protocol. FINDINGS: 1. Raw data:There is fair myocardial tracer uptake with fairly prominent breast shadows noted that particularly affect the anterior portion of the left ventricle. The lung/heart ratio is normal at 0.24 with a normal TID ratio of 0.89. 2. Quantitated gated SPECT: Post-stress ejection fraction is estimated at 78% without any focal wall motion abnormality. Resting ejection fraction is 64% with a mildly increased resting end-diastolic volume of 156 mL. 3. Myocardial perfusion imaging: Post-stress supine images show a fairly normal myocardial perfusion pattern with a very subtle defect in the mid anterior wall, consistent with breast attenuation artifact, supported by its complete resolution on the prone images, as well as a small subtle distal inferoapeical defect that resolves on prone imaging, likely reflecting diaphragmatic attenuation. The prone images show a fairly normal myocardial perfusion pattern. The resting images show a more significant defect in the anterior wall, likely due to differential breast positioning. The anterior apical defect appears similar. IMPRESSION: 1. Probable normal myocardial perfusion study. 2. Subtle fixed mid anterior and distal inferoapical perfusion defects that resolve on prone imaging, most consistent with breast attenuation artifact and diaphragmatic attenuation artifact, respectively. There is no compelling evidence for myocardial ischemia or previous myocardial infarction. 3. Normal left ventricular systolic function without any focal wall motion abnormality, although left ventricular volumes are mildly increased. 4. Mildly impaired exercise capacity without angina with only mild, nonspecific ST-segment shifts. Ursula Boggs - RALF/nestor/carlton doc#: [id number]/job#: [id number] dd: 04/22/2020 16:55:00 dt: 04/22/2020 18:31:00 DICTATING MD/COPIES TO: Sandoval Stephen MD; Lis Henry, DO COPIES MNE: PINEDA;
== END ==
PROVIDERS: PCP Family Medicine; Referring Provider Family Medicine; Visit Provider Family Medicine
DX: I07.1 Rheumatic tricuspid insufficiency (principal); Q21.1 Atrial septal defect; R07.89 Other chest pain; R41.89 Other symptoms and signs involving cognitive functions and awareness; M06.9 Rheumatoid arthritis, unspecified
CPT/HCPCS: 78452; 93016; 93017; 93018; A9502

== ENCOUNTER → 2020-05-04 11:11 | Outpatient (CLI) | payer OTHER, MEDICAID, SELFPAY ==
[2019-09-24 09:17] VITALS: BMI 31.0
--- NOTE | 2020-05-04 11:12 | DI.MG.S_ITS ---
BILATERAL DIGITAL SCREENING MAMMOGRAM 3D/2D WITH CAD: 05/04/2020 CLINICAL: Routine screening. Family history of breast cancer. Comparison is made to exams dated: 04/24/2019 mammogram, 06/10/2018 mammogram, and 11/20/2016 mammogram - [facility]. The tissue of both breasts is heterogeneously dense. This may lower the sensitivity of mammography. Current study was also evaluated with a Computer Aided Detection (CAD) system. There is an 8 mm oval focal asymmetry in the left breast at 4 o'clock posterior depth. This is more prominent. No other significant masses, calcifications, or other findings are seen in either breast. IMPRESSION: INCOMPLETE: NEEDS ADDITIONAL IMAGING EVALUATION The 8 mm oval focal asymmetry in the left breast is indeterminate. Additional views with possible ultrasound are recommended. This exam was interpreted at Station ID: [id number]. NOTE: For mammograms, a report in lay terms will be sent to the patient. Approximately 15% of breast malignancies will not be visualized mammographically. In the management of a palpable breast mass, a negative mammogram must not discourage biopsy of a clinically suspicious lesion. Electronically Signed By: Zain padilla/mike:05/06/2020 09:09:49 letter sent: Additional Imaging Needed ACR BI-RADS Category 0: Incomplete [id number]
== END ==
PROVIDERS: PCP Family Medicine; Referring Provider Family Medicine; Visit Provider Family Medicine
DX: Z12.31 Encounter for screening mammogram for malignant neoplasm of breast (principal); Z80.3 Family history of malignant neoplasm of breast
CPT/HCPCS: 77063; 77067

== ENCOUNTER → 2020-05-19 12:45 | Outpatient (CLI) | payer OTHER, MEDICAID, SELFPAY ==
[2019-09-24 09:17] VITALS: BMI 31.0
--- NOTE | 2020-05-19 | DI.MG.S_ITS ---
UNILATERAL LEFT DIGITAL DIAGNOSTIC MAMMOGRAM 3D/2D WITH ADDITIONAL VIEWS: 05/19/2020 CLINICAL: Additional evaluation requested from prior study. Comparison is made to exams dated: 05/04/2020 mammogram, 04/24/2019 mammogram, and 06/10/2018 mammogram - [facility]. The tissue of left breast is heterogeneously dense. This may lower the sensitivity of mammography. There is a stable 8 mm oval focal asymmetry in the left breast at 3 o'clock posterior depth. No other significant masses or calcifications are seen in the breast. IMPRESSION: INCOMPLETE: NEEDS ADDITIONAL IMAGING EVALUATION The stable 8 mm oval focal asymmetry in the left breast is indeterminate. An ultrasound is recommended. This exam was interpreted at Station ID: [id number]. NOTE: For mammograms, a report in lay terms will be sent to the patient. Approximately 15% of breast malignancies will not be visualized mammographically. In the management of a palpable breast mass, a negative mammogram must not discourage biopsy of a clinically suspicious lesion. Electronically Signed By: Cruz Buckley M.D. jr/:05/19/2020 14:44:07 ACR BI-RADS Category 0: Incomplete [id number]
--- NOTE | 2020-05-19 | DI.US.S_ITS ---
ULTRASOUND OF LEFT BREAST: 05/19/2020 CLINICAL: Patient returns today to evaluate a focal asymmetry in the left breast. Comparison is made to exams dated: 05/19/2020 mammogram, 05/04/2020 mammogram, 04/24/2019 mammogram, 06/10/2018 mammogram, and 11/20/2016 mammogram - [facility]. Color flow and real-time ultrasound of the left breast were performed. Chatman scale images of the real-time examination were reviewed. There is a benign 0.9 cm bilobed cyst in the left breast at 4 o'clock posterior depth 8 cm from the nipple. IMPRESSION: BENIGN There is no sonographic evidence of malignancy. Return to annual screening schedule is recommended. This exam was interpreted at Station ID: [id number]. Electronically Signed By: Cruz Buckley M.D. jr/:05/19/2020 13:33:13 letter sent: Normal Exam Ultrasound BI-RADS: 2 Benign
== END ==
PROVIDERS: PCP Family Medicine; Referring Provider Family Medicine; Visit Provider Family Medicine
DX: R92.8 Other abnormal and inconclusive findings on diagnostic imaging of breast (principal); N60.02 Solitary cyst of left breast
CPT/HCPCS: 76642; 77065; G0279

== ENCOUNTER → 2020-09-20 11:45 | Outpatient (CLI) | payer OTHER, MEDICAID, SELFPAY ==
[2019-09-24 09:17] VITALS: BMI 31.0
[2020-09-20 12:47] LABS: Add Manual Diff / Slide Review NO; Basophils Absolute Auto 0 /uL (0-100); Basophils Percent Auto 0.8 % (0-2); Eosinophils Absolute Auto 200 /uL (0-450); Eosinophils Percent Auto 3.6 % (2-4); Hematocrit 30.5 % (36-46); Hemoglobin 9.6 g/dL (12.0-16.0); Lymphocytes Absolute Auto 1700 /uL (1100-4500); Lymphocytes Percent Auto 26.5 % (25-40); Mean Corpuscular HGB Conc 31.6 % (30-36); Mean Corpuscular Hemoglobin 22.9 PG (26-34); Mean Corpuscular Volume 72.4 fL (80-100); Monocytes Absolute Auto 500 /uL (0-900); Monocytes Percent Auto 7.6 % (3-14); Neutrophils Absolute Auto 3900 /uL (1500-7000); Neutrophils Percent Auto 61.5 % (50-75); Platelet Count 221 X10^3/uL (150-400); Red Blood Cell Count 4.21 X10^6/uL (4.0-5.2); Red Cell Distribution Width 19.4 % (11.6-14.8); White Blood Cell Count 6.3 X10^3/uL (4.5-11.0)
[2020-09-20 12:56] LABS: Alanine Aminotransferase 14 IU/L (<35); Albumin Globulin Ratio 1.5 (1.0-2.8); Alkaline Phosphatase 69 U/L (38-126); Aspartate Aminotransferase 22 IU/L (14-36); BUN Creatinine Ratio 31.6 (6-22); Bilirubin Total 0.2 mg/dL (0.2-1.3); Blood Urea Nitrogen 18 mg/dL (7-17); Calcium 9.9 mg/dL (8.4-10.2); Carbon Dioxide 26 mmol/L (22-32); Chloride 107 mmol/L (98-107); Estimated Glomerular Filt Rate > 60.0 mL/min (>60); Globulin 2.6 g/dL (1.7-4.1); Glucose 94 mg/dL (80-110); HEMOLYSIS < 15 (0-50); Potassium 4.1 mmol/L (3.4-5.1); Sodium 139 mmol/L (137-145); Total Protein 6.6 g/dL (6.3-8.2)
== END ==
PROVIDERS: PCP Family Medicine; Referring Provider Family Medicine; Visit Provider Family Medicine
DX: M05.9 Rheumatoid arthritis with rheumatoid factor, unspecified (principal)
CPT/HCPCS: 36415; 80053; 85025

== ENCOUNTER → 2020-09-22 13:27 | Outpatient (CLI) | payer OTHER, MEDICAID, SELFPAY ==
[2019-09-24 09:17] VITALS: BMI 31.0
[2020-09-22 16:11] LABS: HEMOLYSIS < 15 (0-50); Iron 35 ug/dL (37-170)
[2020-09-22 16:22] LABS: Percent Iron Saturation 8 % (15-50); Total Iron Binding Capacity 464 ug/dL (265-497); Transferrin 370 mg/dL (206-381)
[2020-09-22 16:39] LABS: Ferritin 7 ng/mL (11-264)
== END ==
PROVIDERS: PCP Family Medicine; Referring Provider Family Medicine; Visit Provider Family Medicine
DX: D64.9 Anemia, unspecified (principal)
CPT/HCPCS: 36415; 82728; 83540; 83550; 85045

== ENCOUNTER → 2020-10-19 15:53 | Outpatient (CLI) | payer OTHER, MEDICAID, SELFPAY ==
[2019-09-24 09:17] VITALS: BMI 31.0
[2020-10-19 20:04] LABS: Occult Blood 1 Negative (Negative); Occult Blood 2 Negative (Negative); Occult Blood 3 Negative (Negative)
== END ==
PROVIDERS: PCP Family Medicine; Referring Provider Family Medicine; Visit Provider Family Medicine
DX: D64.9 Anemia, unspecified (principal)
CPT/HCPCS: 82270

== ENCOUNTER → 2020-11-22 12:34 | Outpatient (CLI) | payer OTHER, MEDICAID, SELFPAY ==
[2019-09-24 09:17] VITALS: BMI 31.0
[2020-11-22 13:05] LABS: Add Manual Diff / Slide Review NO; Basophils Absolute Auto 100 /uL (0-100); Basophils Percent Auto 0.8 % (0-2); Eosinophils Absolute Auto 200 /uL (0-450); Eosinophils Percent Auto 1.9 % (2-4); Hematocrit 36.9 % (36-46); Lymphocytes Absolute Auto 2100 /uL (1100-4500); Lymphocytes Percent Auto 25.2 % (25-40); Mean Corpuscular HGB Conc 32.5 % (30-36); Mean Corpuscular Volume 80.2 fL (80-100); Monocytes Absolute Auto 600 /uL (0-900); Monocytes Percent Auto 7.7 % (3-14); Neutrophils Absolute Auto 5400 /uL (1500-7000); Neutrophils Percent Auto 64.4 % (50-75); Platelet Count 205 X10^3/uL (150-400); White Blood Cell Count 8.4 X10^3/uL (4.5-11.0)
[2020-11-22 13:23] LABS: Anisocytosis 1+
[2020-11-22 13:28] LABS: HEMOLYSIS < 15 (0-50); Iron 69 ug/dL (37-170)
[2020-11-22 13:39] LABS: Percent Iron Saturation 18 % (15-50); Total Iron Binding Capacity 388 ug/dL (265-497); Transferrin 324 mg/dL (206-381)
[2020-11-22 14:03] LABS: Ferritin 12 ng/mL (11-264)
== END ==
PROVIDERS: PCP Family Medicine; Referring Provider Family Medicine; Visit Provider Family Medicine
DX: D64.9 Anemia, unspecified (principal)
CPT/HCPCS: 36415; 82728; 83540; 83550; 85025

== ENCOUNTER → 2020-12-06 16:44 | Outpatient (CLI) | payer OTHER, MEDICAID, SELFPAY ==
[2019-09-24 09:17] VITALS: BMI 31.0
== END ==
PROVIDERS: PCP Family Medicine; Referring Provider Family Medicine; Visit Provider Family Medicine
DX: R39.9 Unspecified symptoms and signs involving the genitourinary system (principal)
CPT/HCPCS: 81002; 87086

== ENCOUNTER → 2021-02-22 13:51 | Outpatient (CLI) | payer OTHER, MEDICAID, SELFPAY ==
[2019-09-24 09:17] VITALS: BMI 31.0
[2021-02-22 14:33] LABS: Add Manual Diff / Slide Review NO; Basophils Absolute Auto 100 /uL (0-100); Basophils Percent Auto 0.7 % (0-2); Eosinophils Absolute Auto 200 /uL (0-450); Eosinophils Percent Auto 2.7 % (2-4); Hematocrit 34.9 % (36-46); Hemoglobin 11.7 g/dL (12.0-16.0); Lymphocytes Absolute Auto 2200 /uL (1100-4500); Lymphocytes Percent Auto 25.7 % (25-40); Mean Corpuscular HGB Conc 33.5 % (30-36); Mean Corpuscular Hemoglobin 28.4 PG (26-34); Mean Corpuscular Volume 84.8 fL (80-100); Monocytes Absolute Auto 600 /uL (0-900); Monocytes Percent Auto 6.9 % (3-14); Neutrophils Absolute Auto 5600 /uL (1500-7000); Platelet Count 223 X10^3/uL (150-400); Red Blood Cell Count 4.12 X10^6/uL (4.0-5.2); Red Cell Distribution Width 14.5 % (11.6-14.8); White Blood Cell Count 8.7 X10^3/uL (4.5-11.0)
[2021-02-22 14:35] LABS: Appearance Urine UA CLOUDY; Bilirubin Urine UA NEGATIVE (NEGATIVE); Color Urine UA YELLOW; Glucose Urine UA NEGATIVE (Negative); Ketones Urine UA TRACE (NEGATIVE); Leukocyte Esterase Urine UA TRACE (NEGATIVE); Nitrite Urine UA NEGATIVE (Negative); Occult Blood Urine UA 3+ (Negative); Protein Urine UA 2+ (Negative); Urobilinogen Urine UA 0.2 E.U./dL (0.2)
[2021-02-22 14:50] LABS: Bacteria Urine None Seen; Calcium Oxalate Crystals Urine Occasional; Hyaline Casts Urine 0-1/LPF; RBC Urine 30-100/HPF (0-5/HPF); Squamous Epithelial Cell Urine None Seen (0-5/HPF); WBC Urine 5-10/HPF (0-5/HPF)
[2021-02-22 14:51] LABS: Culture Indicated Urine Specimen Cultured; Mucus Urine 1+ (Negative)
[2021-02-22 14:56] LABS: Erythrocyte Sedimentation Rate 14 MM/HR (0-20)
[2021-02-22 15:44] LABS: Alanine Aminotransferase 16 IU/L (<35); Albumin Globulin Ratio 1.8 (1.0-2.8); Alkaline Phosphatase 64 U/L (38-126); Aspartate Aminotransferase 19 IU/L (14-36); BUN Creatinine Ratio 29.5 (6-22); Bilirubin Total 0.3 mg/dL (0.2-1.3); Blood Urea Nitrogen 23 mg/dL (7-17); C-Reactive Protein Quant < 0.5 mg/dL (<1.0); Carbon Dioxide 29 mmol/L (22-32); Chloride 105 mmol/L (98-107); Estimated Glomerular Filt Rate > 60.0 mL/min (>60); Globulin 2.2 g/dL (1.7-4.1); Glucose 90 mg/dL (80-110); HEMOLYSIS < 15 (0-50); Potassium 3.9 mmol/L (3.4-5.1); Sodium 138 mmol/L (137-145); Total Protein 6.2 g/dL (6.3-8.2)
== END ==
PROVIDERS: PCP Family Medicine; Referring Provider Family Medicine; Visit Provider Family Medicine
DX: R31.9 Hematuria, unspecified (principal)
CPT/HCPCS: 36415; 80053; 81001; 85025; 85651; 86140; 87086

== ENCOUNTER → 2021-02-24 12:46 | Outpatient (CLI) | payer OTHER, MEDICAID, SELFPAY ==
[2019-09-24 09:17] VITALS: BMI 31.0
--- NOTE | 2021-02-24 12:47 | DI.CT.S_ITS ---
PROCEDURE: CT KIDNEY URETER BLADDER (KUB) INDICATIONS: calcium oxalate crystals, hematuria, stone passage? TECHNIQUE: Axial sections were acquired from the lung bases to the pubic symphysis. Coronal and sagittal reformats were performed. For radiation dose reduction, the following was used: automated exposure control, adjustment of mA and/or kV according to patient size. COMPARISON: [facility], CT, ABD/PELVIS W/CON (PNL), 02/05/2014, 10:24. FINDINGS: Image quality: Excellent. Lung bases: Lung bases are clear. There is a large hiatal hernia. Heart: No significant findings. URINARY: Right Kidney: There are a couple of stones in the inferior pole of the right kidney measuring a 7 x 14 mm and 3 mm. No hydronephrosis. Right Ureter: No ureter stones or hydroureter. Left Kidney: No stones or hydronephrosis. Left Ureter: No hydroureter. Bladder: Normal wall thickness. No stones. ABDOMEN: Liver: Unremarkable. Gallbladder: Surgically removed. Biliary ducts: Unremarkable. Pancreas: Unremarkable. Spleen: Unremarkable. Adrenal Glands: Unremarkable. Stomach and Bowel: Stomach, small bowel loops, and colon are unremarkable. Moderate amount of stool in colon. Peritoneum: No abnormal intraperitoneal fluid. No free air. Ventral Wall: No hernia. Abdominal Nodes: No enlarged retroperitoneal or mesenteric lymph nodes. Vessels: Aorta and inferior vena cava are normal in size. PELVIS: Pelvic Organs: Uterus is unremarkable. Ovaries are not well seen. No adnexal mass.. Pelvic Nodes: Unremarkable. Miscellaneous: Small fat containing left inguinal hernia is noted. Bones: Moderate levoscoliosis. Moderate compression fracture of T12. Severe degenerative disc and facet disease in lumbar spine. IMPRESSION: 1. Nephrolithiasis with a couple of nonobstructing stones in right kidney. No hydronephrosis. 2. Large hiatal hernia. 3. Moderate chronic compression fracture of T12. 4. Severe degenerative disc and facet disease in lumbar spine. Dictated by: Dian Callaway M.D. on 02/24/2021 at 13:02 Approved by: Dian Callaway M.D. on 02/24/2021 at 13:41
== END ==
PROVIDERS: PCP Family Medicine; Referring Provider Family Medicine; Visit Provider Family Medicine
DX: R31.9 Hematuria, unspecified (principal); N20.0 Calculus of kidney; K44.9 Diaphragmatic hernia without obstruction or gangrene; M48.54XA Collapsed vertebra, not elsewhere classified, thoracic region, initial encounter for fracture; M51.36 Other intervertebral disc degeneration, lumbar region
CPT/HCPCS: 74176

== ENCOUNTER → 2021-03-02 13:51 | Outpatient (ROUT) | payer OTHER, MEDICAID, SELFPAY ==
[2019-09-24 09:17] VITALS: BMI 31.0
[2021-03-02 14:12] LABS: Appearance Urine UA CLEAR; Bilirubin Urine UA NEGATIVE (NEGATIVE); Color Urine UA YELLOW; Glucose Urine UA NEGATIVE (Negative); Ketones Urine UA NEGATIVE (NEGATIVE); Leukocyte Esterase Urine UA TRACE (NEGATIVE); Nitrite Urine UA NEGATIVE (Negative); Occult Blood Urine UA 3+ (Negative); Protein Urine UA 1+ (Negative); Urobilinogen Urine UA 0.2 E.U./dL (0.2)
[2021-03-02 14:13] LABS: pH Urine UA 6.5 (4.5-8.0)
[2021-03-02 14:22] LABS: RBC Urine 5-10/HPF (0-5/HPF); WBC Urine 0-1/HPF (0-5/HPF)
[2021-03-02 14:23] LABS: Bacteria Urine None Seen; Culture Indicated Urine Cult Not Indicated
== END ==
PROVIDERS: PCP Family Medicine; Visit Provider Family Medicine
DX: N20.0 Calculus of kidney (principal)
CPT/HCPCS: 81001; 81002

== ENCOUNTER → 2021-03-08 11:20 | Outpatient (CLI) | payer OTHER, MEDICAID, SELFPAY ==
[2019-09-24 09:17] VITALS: BMI 31.0
--- NOTE | 2021-03-08 | DI.CT.S_ITS ---
PROCEDURE: CT ABDOMEN PELVIS WO/W CON INDICATIONS: gross hematuria TECHNIQUE: Optional 5 mm thick noncontrast images acquired from the diaphragm to the symphysis pubis. After the administration of intravenous contrast, 5 mm thick images acquired from the diaphragm to the symphysis pubis after a 10-minute delay. 2 mm thick coronal and sagittal reformats were then performed of the kidneys and ureters. For radiation dose reduction, the following was used: automated exposure control, adjustment of mA and/or kV according to patient size. COMPARISON: [facility], CT, CT KIDNEY URETER BLADDER (KUB), 02/24/2021, 12:56. FINDINGS: Image quality: Excellent. Lung bases: A 3 mm nodule is seen at the anterolateral right middle lobe (image 3 of series 4). Heart size is normal. Urinary system: The previously seen 7 x 14 mm calculus in the inferior pole of the right kidney is now located at the ureteropelvic junction with mild increased prominence of the renal pelvis and calices, consistent with mild hydronephrosis. However, contrast material is seen extending into the right ureter on postcontrast images. The previously seen additional 3 mm calculus in the right kidney has not significantly changed. No left-sided renal calculus is seen. Both kidneys are normal in size and enhance symmetrically. No perinephric fat stranding. No suspicious urothelial mass is seen in the renal or ureteral collecting systems bilaterally. Bladder wall thickness is normal. No calcified bladder stones. Other solid organs: Liver is normal in size and enhancement. Gallbladder is surgically absent. Biliary system is non dilated. Pancreas enhances normally. Spleen is normal in size and enhancement. No adrenal nodules. Peritoneum and bowel: There is a large hiatal hernia. Multiple diverticula are seen in the colon without signs of acute diverticulitis. Nodes and vessels: No retroperitoneal or mesenteric adenopathy by size criteria. Aorta and inferior vena cava are normal in size. Abdominal wall: No ventral hernias. Pelvis: No pathologic free pelvic fluid. No inguinal hernias or adenopathy. Bones: No suspicious bony lesions. Chronic T12 compression fracture is unchanged. There is grade 1 anterolisthesis of L4 on L5 secondary to facet hypertrophy. Multilevel degenerative changes are again seen in the spine. IMPRESSION: 1. Previously seen 14 mm right renal calculus is now located at the ureteropelvic junction with development of mild hydronephrosis. However, contrast material is seen within the right ureter, suggesting partial obstruction. Additional nonobstructing right renal calculus is stable. 2. No suspicious urothelial mass. No left-sided nephrolithiasis or hydronephrosis. 3. Large hiatal hernia. 4. Colonic diverticulosis. 5. Chronic T12 compression fracture. Dictated by: Zain Ch M.D. on 03/08/2021 at 13:18 Approved by: Zain Ch M.D. on 03/08/2021 at 13:39
== END ==
PROVIDERS: PCP Family Medicine; Referring Provider Urology; Visit Provider Urology
DX: N13.2 Hydronephrosis with renal and ureteral calculous obstruction (principal); R31.0 Gross hematuria; R91.1 Solitary pulmonary nodule; K44.9 Diaphragmatic hernia without obstruction or gangrene; K57.90 Diverticulosis of intestine, part unspecified, without perforation or abscess without bleeding; M48.56XS Collapsed vertebra, not elsewhere classified, lumbar region, sequela of fracture
CPT/HCPCS: 74178

== ENCOUNTER → 2021-04-04 09:25 | Outpatient (CLI) | payer OTHER, MEDICAID, SELFPAY ==
[2019-09-24 09:17] VITALS: BMI 31.0
--- NOTE | 2021-04-04 09:28 | DI.RAD.S_ITS ---
PROCEDURE: XR FEMUR RT MIN 2V INDICATIONS: right thigh pain TECHNIQUE: 4 views of the femur were acquired. COMPARISON: None. FINDINGS: Bones: No fractures or dislocations. There is mild axial joint space narrowing in the right hip. No suspicious bony lesions. Soft tissues: No suspicious soft tissue calcifications or masses. A ureteral stent is partially visualized. IMPRESSION: 1. No fracture or dislocation. Dictated by: Bharat Padilla M.D. on 04/04/2021 at 10:33 Approved by: Bharat Padilla M.D. on 04/04/2021 at 10:51
--- NOTE | 2021-04-04 09:28 | DI.RAD.S_ITS ---
PROCEDURE: XR SHOULDER RT MIN 2V INDICATIONS: right shoulder pain TECHNIQUE: 3 views of the shoulder were acquired. COMPARISON: None. FINDINGS: Bones: No fractures or dislocations. No suspicious bony lesions. Visualized ribs appear intact. Mild acromioclavicular joint and glenohumeral joint osteoarthritis. Soft tissues: No suspicious soft tissue calcifications. IMPRESSION: Mild osteoarthritis. Dictated by: Lesly Thompson MD, PhD on 04/04/2021 at 12:52 Approved by: Lesly Thompson MD, PhD on 04/04/2021 at 12:52
--- NOTE | 2021-04-04 09:28 | DI.RAD.S_ITS ---
PROCEDURE: XR LUMBAR SPINE 2-3V INDICATIONS: lower back pain TECHNIQUE: 3 views of the lumbar spine were acquired. COMPARISON: None. FINDINGS: Bones: 5 [id number] vertebrae are present. There is mild diffuse leftward curvature of the lumbar spine. Mild grade 1 anterolisthesis of L4 on L5. Mild grade 1 retrolisthesis of L2 on L3. Multilevel disc space narrowing and endplate osteophyte formation. Facet hypertrophy throughout the mid and lower lumbar spine. Mild chronic appearing T12 compression fracture. No vertebral body compression fractures. No suspicious bony lesions. Soft tissues: Overlying bowel gas pattern is normal. No suspicious soft tissue calcifications. Right ureteral stent. Cholecystectomy clips. IMPRESSION: 1. Multilevel degenerative disc and facet disease. 2. Chronic appearing T12 compression fracture. This could be further assessed with MRI, if clinically indicated. Dictated by: Trisha Almendarez M.D. on 04/04/2021 at 10:46 Approved by: Trisha Almendarez M.D. on 04/04/2021 at 10:49
== END ==
PROVIDERS: PCP Family Medicine; Referring Provider Registered Nurse; Visit Provider Registered Nurse
DX: M51.36 Other intervertebral disc degeneration, lumbar region (principal); M48.54XA Collapsed vertebra, not elsewhere classified, thoracic region, initial encounter for fracture; M19.011 Primary osteoarthritis, right shoulder; M25.511 Pain in right shoulder; M54.50 Low back pain, unspecified; M79.651 Pain in right thigh
CPT/HCPCS: 72100; 73030; 73552

== ENCOUNTER 2021-04-13 04:10 | Emergency (ER) | payer OTHER, MEDICAID, SELFPAY ==
[2019-09-24 09:17] VITALS: BMI 31.0
[2021-04-13 04:10] VITALS: BP 146/79; PULSE 74; RESP 18; TEMP 36.6; O2SAT 96; BMI 31.0
--- NOTE | 2021-04-13 04:19 | ED_ITS ---
HPI - Abdominal Pain General Chief Complaint: Urogenital-Female Stated Complaint: pain from stint removal Time Seen by Provider: 04/13/21 04:19 Source: patient Mode of arrival: Ambulatory Limitations: no limitations History of Present Illness HPI narrative: This is a 65-year-old female comes emergency department with complaint of right lower abdominal and flank pain. Patient is status post right ureteral stent r emoval on Sunday the . Patient states she had a kidney stone. She states that a go up into the ureter to break it up and then placed a stent. She had this done at [facility]. Dr. Alvarez is her urologist. Since her procedure which about 3:00 p.m. that evening she started having increasing pain. She has had sensation of frequency and incomplete emptying since the procedure. No fevers or chills. She has been nauseated but not actively vomiting. She has not had any issues with bowel movements. She did take a Pyridium which she states did not seem to be very helpful in her urine in change color very quickly to orange. She denies any vaginal bleeding or discharge. She has tried a meloxicam at home and hydrocodone. Related Data Home Medications Medication Instructions Recorded Confirmed cetirizine 10 mg tablet (Zyrtec) 10 mg PO DAILY 07/03/18 04/04/21 calcium carbonate 600 mg-vitamin 1 tab PO DAILY 12/06/20 04/04/21 D3 20 mcg (800 unit) chewable tablet (Caltrate 600 plus D) iron and minerals 12/06/20 04/04/21 Previous Rx's Medication Instructions Recorded fluticasone 100 mcg-salmeterol 50 1 ea INHALATION BID #60 ea 06/22/20 mcg/dose blistr powdr for inhalation (Advair Diskus) albuterol sulfate 90 mcg/actuation See Rx Instructions .ROUTE 08/03/20 aerosol inhaler .COMPLEX #6.7 g meloxicam 15 mg tablet (Mobic) 15 mg PO Q DAY #90 tab 10/06/20 sertraline 100 mg tablet See Rx Instructions .ROUTE 01/25/21 .COMPLEX #45 tab temazepam 15 mg capsule See Rx Instructions .ROUTE 02/22/21 .COMPLEX #30 cap hydrocodone 5 mg-acetaminophen 325 2 tab PO DAILY PRN #14 tab 04/13/21 mg tablet tamsulosin 0.4 mg capsule (Flomax) 0.4 mg PO DAILY #7 cap 04/13/21 Allergies Allergy/AdvReac Type Severity Reaction Status Date / Time hydroxychloroquine Allergy Severe RASH FROM Verified 04/04/21 09:06 [HYDROXYCHLOROQUINE] PLAQUENIL hydrocodone [HYDROCODONE] Allergy Intermediate Itching, Verified 04/04/21 09:06 irritation, nausea oxycodone [OXYCODONE] Allergy Intermediate Itching, Verified 04/04/21 09:06 irritation, nausea indomethacin [INDOMETHACIN] AdvReac Severe FELT LIKE Verified 04/04/21 09:06 I WAS ON FIRE/PAIN Review of Systems Review of Systems ROS Unobtainable: All systems reviewed & are unremarkable except as noted in HPI and below Patient History Medical History Anemia Arthritis Asthma Bronchitis Cat allergies Easy bruisability Endometriosis Fracture of sacrum Grief Head injury (~2013) Low back pain Migraines Mitral regurgitation Neck pain Nephrolithiasis Numbness Obstructive sleep apnea (adult) (pediatric) On antiepileptic therapy Patient has active durable power of litigation attorney (DPOA) designee for healthcare Pneumonia Rheumatoid arthritis in remission Right shoulder pain Right thigh pain RLS (restless legs syndrome) Seizure disorder (11/04/14) Sleep apnea Spell of altered cognition Thoracic spine fracture Tricuspid valve regurgitation Surgical History History of cataract removal with insertion of prosthetic lens History of surgery on arm Hx of tonsillectomy S/P foot surgery, right Status post bilateral cataract extraction Status post cholecystectomy Status post laparoscopy Family History Brother Age: 66 Diabetes mellitus Obesity Grandmother Rheumatoid aortitis CAD (coronary artery disease) Mother Age: 91 Osteoarthritis Heart murmur Hypertension Social History household members: significant other Smoking Status: Never smoker alcohol intake: current Smoking Status: Never smoker alcohol intake frequency: a few times a week Substance Use Type: marijuana Exam Narrative Exam Narrative: GENERAL: Alert and oriented x three, female in [id number] distress. HEENT: Head normocephalic, atraumatic, EOMI, pupils reactive, face symmetric, moist mucous membranes NECK: Supple, full range of motion CARDIOVASCULAR: Regular rate and rhythm without murmurs, rubs or gallops. RESPIRATORY: Breath sounds equal bilaterally, no wheezes rales or rhonchi. ABDOMEN: Soft, nontender. Normoactive bowel sounds all 4 quadrants. No guarding or rebound, rigidity, no mass : No CVA tenderness EXTREMITIES: Normal range of motion, no clubbing or edema. Neurovascularly intact NEUROLOGICAL: Cranial nerves II through XII grossly intact. Moving all extremities. Normal gait. SKIN: Warm, dry, no petechiae, no rashes or lesions. Initial Vital Signs Initial Vital Signs: Vital Signs Temperature 97.8 F 04/13/21 04:10 Pulse Rate 74 04/13/21 04:10 Respiratory Rate 18 04/13/21 04:10 Blood Pressure 146/79 H 04/13/21 04:10 Pulse Oximetry 96 04/13/21 04:10 Course Orders Ordered: Discontinued Medications Hydrocodone Bitart/Acetaminophen (Hydrocodone/Acet 5/325 Prepack) 1 bottle [facility] Stop: 04/13/21 06:27 Last Admin: 04/13/21 06:36 Dose: 1 bottle Documented by: COREEN Ketorolac Tromethamine (Ketorolac 30 Mg/Ml Vial) 15 mg IV NOW ONE Stop: 04/13/21 04:28 Last Admin: 04/13/21 04:43 Dose: 15 mg Documented by: COREEN Ondansetron HCl (Ondansetron 4 Mg/2 Ml Inj) 4 mg IV NOW ONE Stop: 04/13/21 04:28 Last Admin: 04/13/21 04:44 Dose: 4 mg Documented by: COREEN Tamsulosin HCl (Tamsulosin 0.4 Mg Capsule) 0.4 mg PO NOW ONE Stop: 04/13/21 06:27 Last Admin: 04/13/21 06:36 Dose: 0.4 mg Documented by: COREEN Reevaluation(s) Reevaluation #1: Patient is feeling improved. Dr. Guerrier performed her stent removal yesterday. Discussed patient's findings with her CT imaging. Waiting for her urinalysis results and then will call Urology. Patient states she wishes to continue with her urology team at [facility]. She does not wish to be seen by local Urology understandably. Time: 06:02 Consultations Consultation #1: Dr. Guerrier, urology at [facility]. He removed patient's ureteral stent yesterday. Discussed that she appears to have a new kidney stone that is 10 x 4 mm with severe hydro. I do not have access to her recent images to see if she had severe hydro prior with her ureteral stent. She is currently pain controlled. We discussed that if her pain is controlled she can follow-up with them in the office. She will likely need intervention again. He asked that she call this morning. We can restart Flomax. Does not appear to have any infection her renal function appears stable at this time. Time: 06:15 Vital Signs Vital signs: Vital Signs - 8 hr 04/13/21 04:10 Temperature 97.8 F Pulse Rate 74 Respiratory Rate 18 Blood Pressure 146/79 H Pulse Oximetry 96 MDM - Abdominal Pain Lab Data Result diagrams: 04/13/21 04:45 04/13/21 04:45 Labs: Lab Results 04/13/21 04/13/21 04/13/21 Range/Units 04:45 04:45 04:45 WBC 13.3 H (4.5-11.0) X10^3/uL RBC 4.00 (4.0-5.2) X10^6/uL Hgb 11.1 L (12.0-16.0) g/dL Hct 33.3 L (36-46) % MCV 83.2 (80-100) fL MCH 27.7 (26-34) PG MCHC 33.3 (30-36) % RDW 14.0 (11.6-14.8) % Plt Count 230 (150-400) X10^3/uL Neut % (Auto) 81.5 H (50-75) % Lymph % (Auto) 8.9 L (25-40) % [place] % (Auto) 6.4 (3-14) % Eos % (Auto) 2.8 (2-4) % Baso % (Auto) 0.4 (0-2) % Neut # (Auto) 05006 H (8105-7332) /uL Lymph # (Auto) 1200 (7099-1706) /uL [place] # (Auto) 800 (0-900) /uL Eos # (Auto) 400 (0-450) /uL Baso # (Auto) 100 (0-100) /uL Sodium 138 (137-145) mmol/L Potassium 4.0 (3.4-5.1) mmol/L Chloride 106 (98-107) mmol/L Carbon Dioxide 25 (22-32) mmol/L BUN 20 H (7-17) mg/dL Creatinine 0.71 (0.52-1.04) mg/dL Estimated GFR > 60.0 (>60) mL/min BUN/Creatinine Ratio 28.2 H (6-22) Glucose 145 H (80-110) mg/dL Calcium 9.9 (8.4-10.2) mg/dL Total Bilirubin 0.4 (0.2-1.3) mg/dL AST 20 (14-36) IU/L ALT 15 (<35) IU/L Alkaline Phosphatase 84 (38-126) U/L Total Protein 6.9 (6.3-8.2) g/dL Albumin 4.2 (3.5-5.0) g/dL Globulin 2.7 (1.7-4.1) g/dL Albumin/Globulin Ratio 1.6 (1.0-2.8) Lipase 42 (23-300) U/L Urine Color Yellow Urine Appearance Clear Urine pH 5.0 (4.5-8.0) Ur Specific [place] >=1.030 H (1.000-1.035) Urine Protein 1+ H (Negative) Urine Glucose (UA) Negative (Negative) g/dL Urine Ketones Negative (NEGATIVE) Urine Occult Blood 3+ H (Negative) Urine Nitrate Not Reportable Urine Bilirubin Negative (NEGATIVE) Urine Urobilinogen 0.2 (0.2) E.U./dL Ur Leukocyte Esterase Negative (NEGATIVE) Urine RBC 5-10/hpf H (0-5/HPF) Urine WBC 1-5/hpf (0-5/HPF) Calcium Oxalate Crystal Few H Urine Bacteria None seen (None) Ur Culture Indicated? Cult not indicated Micro UA Comment * MDM Narrative Medical decision making narrative: This is a 65-year-old female with known history kidney stones who had lithotripsy approximately 2 weeks ago with intra ureteral treatment and renal stent placed. Patient had her stent removed on the 15 later that evening she had increasing right lower quadrant and flank pain. This was the side her stent was on. Her labs are reassuring with urine not showing any signs of infection currently but she has severe hydro with a large stone 10 x 4 mm. There is some additional nonobstructing renal calculi as well. No other acute changes appreciated. Patient's pain was controlled here with Toradol in the department. She states she can tolerate Sidney and oxycodone just makes her feel uncomfortable. Discussed with her urology team if she is pain controlled can be seen outpatient. If not she will need intervention. Plan for Flomax. Patient has oral Toradol at home we discussed not mixing NSAIDs and that she can have at 6:00 a.m. after her dose here in the department. Gave her a prepack for Sidney as well as prescription for that as Flomax at the local pharmacy. Patient and I discussed return precautions she feels comfortable with this plan. She is going to call to see the urologist shortly. Discharge Plan Departure Patient Disposition: Home Clinical Impression: Ureterolithiasis, Hydroureter on right Instructions: DI for Kidney Stones Activity Restrictions/Additional Instructions: You have a very large kidney stone with enlargement of the ureter or hydroureter . Spoke with Dr. Guerrier today. You will likely need intervention to treat your kidney stone again. You may continue Toradol as prescribed. You may take 1-2 tablets of [place] every 6 hours as needed for pain in addition. Take Flomax once daily until gone. Prescription sent to [facility] in [place] [employer]. Please return or go to the nearest emergency department for fevers, worsening or intractable abdominal or flank pain, persistent vomiting, difficulty with urination or other new or concerning symptoms. Prescriptions: New hydrocodone-acetaminophen 5-325 mg tablet 2 tab PO DAILY PRN (Reason: pain) Qty: 14 0RF tamsulosin [Flomax] 0.4 mg capsule 0.4 mg PO DAILY Qty: 7 0RF No Action fluticasone propion-salmeterol [Advair Diskus] 100-50 mcg/dose blister with device 1 ea INHALATION BID Qty: 60 1RF albuterol sulfate 90 mcg/actuation HFA aerosol inhaler See Rx Instructions .ROUTE .COMPLEX Qty: 6.7 0RF Dose Instruction: INHALE 2 PUFF BY MOUTH INHALATION EVERY 4 TO 6 HOURS NEEDED FOR SHORTNESS OF BREATH OR WHEEZING Rx Instructions: INHALE 2 PUFF BY MOUTH INHALATION EVERY 4 TO 6 HOURS NEEDED FOR SHORTNESS OF BREATH OR WHEEZING sertraline 100 mg tablet See Rx Instructions .ROUTE .COMPLEX Qty: 45 1RF Dose Instruction: TAKE 1 & 1/2 TABLETS (1.5 X 100 MG) BY MOUTH DAILY Rx Instructions: TAKE 1 & 1/2 TABLETS (1.5 X 100 MG) BY MOUTH DAILY temazepam 15 mg capsule See Rx Instructions .ROUTE .COMPLEX Qty: 30 3RF Dose Instruction: TAKE 1 CAPSULE BY MOUTH BEDTIME NEEDED FOR SLEEP Rx Instructions: TAKE 1 CAPSULE BY MOUTH BEDTIME NEEDED FOR SLEEP meloxicam [Mobic] 15 mg tablet 15 mg PO Q DAY Qty: 90 1RF Hold Instructions: while taking prednisone Caltrate 600 plus D 600 mg (1,500 mg)-800 unit tablet,chewable 1 tab PO DAILY 0RF Hold Instructions: kidney stones (DME) iron and minerals 0 .Route .MEDSUPPLY 0RF cetirizine [Zyrtec] 10 mg Tablet 10 mg PO DAILY 0RF Referrals: Lis Henry DO [Primary Care Provider] -
--- NOTE | 2021-04-13 04:27 | DI.CT.S_ITS ---
PROCEDURE: CT KIDNEY URETER BLADDER (KUB) INDICATIONS: right flank/abd pain, ureteral stent removed 04/12 TECHNIQUE: Axial sections were acquired from the lung bases to the pubic symphysis. Coronal and sagittal reformats were performed. For radiation dose reduction, the following was used: automated exposure control, adjustment of mA and/or kV according to patient size. COMPARISON: [facility], CR, XR FEMUR RT MIN 2V, 04/04/2021, 9:20. [facility], CR, XR RETROGRADE UROGRAPHY, 03/30/2021, 8:47. [facility], CT, CT ABDOMEN PELVIS WO/W CON, 03/08/2021, 11:30. [facility], CT, CT KIDNEY URETER BLADDER (KUB), 02/24/2021, 12:56. FINDINGS: Image quality: Excellent. Lung bases: Unremarkable. Heart: No significant findings. URINARY: Right Kidney: Severe hydronephrosis. Numerous tiny nonobstructing calyceal stones. Perinephric fluid consistent with probable calyceal rupture. Right Ureter: Severely dilated to the level of the ureterovesical junction, where there is a 10 x 4 mm distal ureteral stone. Left Kidney: No stones or hydronephrosis. Left Ureter: No hydroureter. Bladder: Normal wall thickness. No stones. ABDOMEN: Liver: Unremarkable. Gallbladder: Surgically absent Biliary ducts: Unremarkable. Pancreas: Unremarkable. Spleen: Unremarkable. Adrenal Glands: Unremarkable. Stomach and Bowel: Large hiatal hernia containing stomach. Large amount of fecal debris. Peritoneum: No abnormal intraperitoneal fluid. No free air. Ventral Wall: No hernia. Abdominal Nodes: No enlarged retroperitoneal or mesenteric lymph nodes. Vessels: Aorta and inferior vena cava are normal in size. PELVIS: Pelvic Organs: Unremarkable. Pelvic Nodes: Unremarkable. Miscellaneous: Small fat containing left inguinal hernia.. Bones: Old moderate to severe T12 compression fracture. Lumbar degenerative change. Severe canal stenosis at L4-L5. IMPRESSION: 1. A 10 x 4 mm stone obstructs the distal the right ureter at the level of the ureterovesical junction, resulting in severe right hydronephrosis. There is right perinephric fluid consistent with calyceal rupture. 2. There are numerous tiny nonobstructing right renal calyceal stones. 3. Large hiatal hernia. 4. Lumbar degenerative change, old compression fracture, lumbar canal stenosis. Comment: Final report is concordant with preliminary interpretation provided by [facility]. Dictated by: Joes Chapman M.D. on 04/13/2021 at 7:26 Approved by: Jose Chapman M.D. on 04/13/2021 at 7:33
[2021-04-13] MEDS: KETOROLAC 30 MG/ML VIAL 15 MG IV (04:43)
[2021-04-13] MEDS: ONDANSETRON 4 MG/2 ML INJ IV (04:44)
[2021-04-13 05:01] LABS: Add Manual Diff / Slide Review NO; Basophils Absolute Auto 100 /uL (0-100); Basophils Percent Auto 0.4 % (0-2); Eosinophils Absolute Auto 400 /uL (0-450); Eosinophils Percent Auto 2.8 % (2-4); Hematocrit 33.3 % (36-46); Hemoglobin 11.1 g/dL (12.0-16.0); Lymphocytes Absolute Auto 1200 /uL (1100-4500); Lymphocytes Percent Auto 8.9 % (25-40); Mean Corpuscular HGB Conc 33.3 % (30-36); Mean Corpuscular Hemoglobin 27.7 PG (26-34); Mean Corpuscular Volume 83.2 fL (80-100); Monocytes Absolute Auto 800 /uL (0-900); Monocytes Percent Auto 6.4 % (3-14); Neutrophils Absolute Auto 10800 /uL (1500-7000); Neutrophils Percent Auto 81.5 % (50-75); Platelet Count 230 X10^3/uL (150-400); White Blood Cell Count 13.3 X10^3/uL (4.5-11.0)
[2021-04-13 05:08] LABS: Alanine Aminotransferase 15 IU/L (<35); Albumin 4.2 g/dL (3.5-5.0); Albumin Globulin Ratio 1.6 (1.0-2.8); Alkaline Phosphatase 84 U/L (38-126); Aspartate Aminotransferase 20 IU/L (14-36); BUN Creatinine Ratio 28.2 (6-22); Bilirubin Total 0.4 mg/dL (0.2-1.3); Blood Urea Nitrogen 20 mg/dL (7-17); Calcium 9.9 mg/dL (8.4-10.2); Carbon Dioxide 25 mmol/L (22-32); Chloride 106 mmol/L (98-107); Estimated Glomerular Filt Rate > 60.0 mL/min (>60); Globulin 2.7 g/dL (1.7-4.1); Glucose 145 mg/dL (80-110); HEMOLYSIS < 15 (0-50); Lipase 42 U/L (23-300); Sodium 138 mmol/L (137-145); Total Protein 6.9 g/dL (6.3-8.2)
[2021-04-13 05:24] LABS: Appearance Urine UA CLEAR; Bilirubin Urine UA NEGATIVE (NEGATIVE); Color Urine UA YELLOW; Ketones Urine UA NEGATIVE (NEGATIVE); Leukocyte Esterase Urine UA NEGATIVE (NEGATIVE); Occult Blood Urine UA 3+ (Negative); Protein Urine UA 1+ (Negative); Specific Gravity Urine UA >=1.030 (1.000-1.035); Urobilinogen Urine UA 0.2 E.U./dL (0.2)
[2021-04-13 05:51] LABS: Glucose Urine UA NEGATIVE (Negative); RBC Urine 5-10/HPF (0-5/HPF); WBC Urine 1-5/HPF (0-5/HPF)
[2021-04-13 05:52] LABS: Bacteria Urine None Seen; Calcium Oxalate Crystals Urine Few; Culture Indicated Urine Cult Not Indicated
[2021-04-13] MEDS: HYDROCODONE/ACET 5/325 PREPACK 1 BOTTLE MISC (06:36)
[2021-04-13] MEDS: TAMSULOSIN 0.4 MG CAPSULE PO (06:36)
[2021-04-13 07:03] VITALS: BP 149/84; PULSE 63; RESP 14; O2SAT 97
== END 2021-04-13 07:04 | disposition home or self-care (01) ==
PROVIDERS: Emergency Provider Emergency Medicine; PCP Family Medicine
DX: N13.2 Hydronephrosis with renal and ureteral calculous obstruction (principal); Z88.5 Allergy status to narcotic agent; Z88.8 Allergy status to other drugs, medicaments and biological substances
CPT/HCPCS: 74176; 80053; 81001; 83690; 85025; 96374; 96375; 99284; J1885; J2405

== ENCOUNTER → 2021-05-23 12:11 | Outpatient (CLI) | payer OTHER, MEDICAID, SELFPAY ==
[2019-09-24 09:17] VITALS: BMI 31.0
--- NOTE | 2021-05-23 12:13 | DI.US.S_ITS ---
PROCEDURE: US RENAL COMPLETE INDICATIONS: RECENT RIGHT URETERAL STONE TECHNIQUE: Real-time scanning was performed of the kidneys and bladder, with image documentation. COMPARISON: [facility], CT, CT ABDOMEN PELVIS WO/W CON, 03/08/2021, 11:30. [facility], CT, CT KIDNEY URETER BLADDER (KUB), 04/13/2021, 4:34. FINDINGS: Kidneys: Kidneys are normal in size. Right kidney measures 12 point cm long; left kidney measures 13.5 cm long. Right renal cortical thickness is 1.5 cm; left renal cortical thickness is 2.1 cm. Renal cortical echotexture is normal. No hydronephrosis or nephrolithiasis. Mild right pelvocaliectasis. There is a 1.0 x 0.7 x 1.0 centimeter left renal anterior-superior exophytic lesion corresponds to previously seen left renal cyst. Bladder: Pre-void bladder volume is 108 mL. Post-void residual is 0 mL. Pre-void images demonstrate no intraluminal masses or stones. On pre-void images, both right and left ureteral jets are noted with color Doppler interrogation. (Of note, ureteral jets may not be detectable in up to 25% of cases due to insufficient differences in specific gravity between ureteral and bladder urine). Miscellaneous: No free pelvic fluid. IMPRESSION: Mild right-sided hydronephrosis. Dictated by: Lesly Thompson MD, PhD on 05/23/2021 at 15:58 Approved by: Lesly Thompson MD, PhD on 05/23/2021 at 16:01
== END ==
PROVIDERS: PCP Family Medicine; Referring Provider Urology; Visit Provider Urology
DX: N13.2 Hydronephrosis with renal and ureteral calculous obstruction (principal)
CPT/HCPCS: 76770

== ENCOUNTER → 2021-06-02 15:38 | Outpatient (CLI) | payer OTHER, MEDICAID, SELFPAY ==
[2019-09-24 09:17] VITALS: BMI 31.0
[2021-06-02 16:44] LABS: Add Manual Diff / Slide Review NO; Basophils Absolute Auto 100 /uL (0-100); Basophils Percent Auto 0.7 % (0-2); Eosinophils Absolute Auto 300 /uL (0-450); Hematocrit 34.2 % (36-46); Lymphocytes Absolute Auto 2100 /uL (1100-4500); Lymphocytes Percent Auto 26.9 % (25-40); Mean Corpuscular HGB Conc 32.3 % (30-36); Mean Corpuscular Hemoglobin 25.8 PG (26-34); Monocytes Absolute Auto 500 /uL (0-900); Monocytes Percent Auto 6.1 % (3-14); Neutrophils Absolute Auto 4900 /uL (1500-7000); Neutrophils Percent Auto 62.3 % (50-75); Platelet Count 250 X10^3/uL (150-400); Red Blood Cell Count 4.27 X10^6/uL (4.0-5.2); Red Cell Distribution Width 14.4 % (11.6-14.8); White Blood Cell Count 7.9 X10^3/uL (4.5-11.0)
[2021-06-02 16:55] LABS: HEMOLYSIS < 15 (0-50); Iron 36 ug/dL (37-170)
[2021-06-02 16:57] LABS: Alanine Aminotransferase 16 IU/L (<35); Albumin 4.3 g/dL (3.5-5.0); Albumin Globulin Ratio 1.5 (1.0-2.8); Alkaline Phosphatase 70 U/L (38-126); Aspartate Aminotransferase 22 IU/L (14-36); BUN Creatinine Ratio 32.2 (6-22); Bilirubin Total 0.3 mg/dL (0.2-1.3); Blood Urea Nitrogen 19 mg/dL (7-17); Calcium 9.3 mg/dL (8.4-10.2); Carbon Dioxide 26 mmol/L (22-32); Chloride 106 mmol/L (98-107); Estimated Glomerular Filt Rate > 60.0 mL/min (>60); Globulin 2.9 g/dL (1.7-4.1); Glucose 133 mg/dL (80-110); HEMOLYSIS < 15 (0-50); Potassium 3.8 mmol/L (3.4-5.1); Sodium 141 mmol/L (137-145); Total Protein 7.2 g/dL (6.3-8.2)
[2021-06-02 17:05] LABS: Percent Iron Saturation 9 % (15-50); Total Iron Binding Capacity 416 ug/dL (265-497); Transferrin 331 mg/dL (206-381)
== END ==
PROVIDERS: PCP Family Medicine; Referring Provider Family Medicine; Visit Provider Family Medicine
DX: N20.0 Calculus of kidney (principal); D50.8 Other iron deficiency anemias; R45.89 Other symptoms and signs involving emotional state; M05.9 Rheumatoid arthritis with rheumatoid factor, unspecified; F51.05 Insomnia due to other mental disorder; F99 Mental disorder, not otherwise specified
CPT/HCPCS: 36415; 80053; 83540; 83550; 85025

== ENCOUNTER → 2021-06-10 08:50 | Outpatient (CLI) | payer OTHER, MEDICAID, SELFPAY ==
[2019-09-24 09:17] VITALS: BMI 31.0
--- NOTE | 2021-06-10 08:52 | DI.MRI.S_ITS ---
PROCEDURE: MR LUMBAR SPINE WO CON INDICATIONS: lumbar facet arthropathy TECHNIQUE: Noncontrast sagittal T1 spin echo and T2 fast echo, sagittal STIR, and T2 fast spin echo through the lumbar spine. In cases with scoliosis, additional coronal T2 fast spin echo may be performed. COMPARISON: None. FINDINGS: Image quality: Excellent. Alignment and Curvature: Degenerative grade 1 anterior spondylolisthesis present at L4-5. Mild convex left lumbar scoliosis present. Bone Marrow: Marrow is of normal overall signal. No acute vertebral body compression fractures. Wedge-shaped compression fracture at T12 results in 50% anterior height loss without retropulsed fracture fragment. Spinal Cord: Conus medullaris terminates at the L1 level. Visualized cord demonstrates normal signal and size. Paraspinous Soft Tissues: No paravertebral masses. T12-L1: Disc space narrowing and circumferential disc bulge results in moderate central stenosis, eccentric to the left with effacement of the left lateral recess. There is severe left and mild right foraminal stenosis. L1-L2: Disc height is preserved. Circumferential disc bulge and hypertrophic facet joints results in mild central stenosis. Mild right and no left foraminal stenosis. L2-L3: Disc space narrowing and circumferential disc bulge with hypertrophic facet joints present. There is a focal right subarticular disc protrusion filling the right lateral recess and resulting in moderate central stenosis. Moderate bilateral foraminal stenosis present. L3-L4: Disc space narrowing and circumferential disc bulge with hypertrophic facet joints results in mild central stenosis with effacement of the right lateral recess. There is severe right and moderate left foraminal stenosis L4-L5: Disc space narrowing with circumferential disc bulge and hypertrophic facet joints combine to result in severe central stenosis. Severe right and left foraminal stenosis. L5-S1: Disc space narrowing with circumferential disc bulge and hypertrophic facet joints results in mild central stenosis. Severe right and left foraminal stenosis. IMPRESSION: 1. Multilevel degenerative disc disease and arthropathy results in varying degrees of central and foraminal stenosis including severe central and bilateral foraminal stenosis at L4-5 and severe foraminal stenosis at L5-S1. 2. Focal right subarticular disc protrusion at L2-3 fills the right lateral recess results in moderate central stenosis. 3. Chronic T12 compression fracture without retropulsed fracture fragment Approved by: Tim Braun M.D. on 06/10/2021 at 11:53
== END ==
PROVIDERS: PCP Family Medicine; Referring Provider Physician Assistant Surgical; Visit Provider Physician Assistant Surgical
DX: M47.816 Spondylosis without myelopathy or radiculopathy, lumbar region (principal); M51.36 Other intervertebral disc degeneration, lumbar region; M48.061 Spinal stenosis, lumbar region without neurogenic claudication; M48.07 Spinal stenosis, lumbosacral region; M51.26 Other intervertebral disc displacement, lumbar region; M48.54XA Collapsed vertebra, not elsewhere classified, thoracic region, initial encounter for fracture; M41.9 Scoliosis, unspecified
CPT/HCPCS: 72148

== ENCOUNTER 2021-08-22 12:50 | Emergency (ER) | payer OTHER, SELFPAY ==
[2019-09-24 09:17] VITALS: BMI 31.0
[2021-08-22 13:00] VITALS: BP 141/79; PULSE 99; RESP 16; TEMP 36.6; O2SAT 98; BMI 30.5
--- NOTE | 2021-08-22 13:36 | ED_ITS ---
HPI - Extremity Problem General Chief complaint: Extremity Problem,Nontraumatic Stated complaint: Swelling in right leg/foot Time Seen by Provider: 08/22/21 13:11 Mode of arrival: Family Vehicle History of Present Illness HPI Narrative: Patient is a 66-year-old female a history of rheumatoid arthritis recently started on Actemra, she has had 2 injections presenting today with increased swelling in her right leg. She says her whole right leg is swollen. She says she has had rheumatoid arthritis flare since her 3rd COVID booster she has not had a flare in over 30 years. She thinks that the knee with the patient is working but and started having swelling in her leg. She denies any chest pain or shortness of breath. She has pain in all of her joints. She denies fever or chills. Related Data Home Medications Medication Instructions Recorded Confirmed cetirizine 10 mg tablet (Zyrtec) 10 mg PO DAILY 07/03/18 06/02/21 calcium carbonate 600 mg-vitamin 1 tab PO DAILY 12/06/20 06/02/21 D3 20 mcg (800 unit) chewable tablet (Caltrate 600 plus D) iron and minerals 12/06/20 06/02/21 Previous Rx's Medication Instructions Recorded fluticasone 100 mcg-salmeterol 50 1 ea inhalation BID #60 ea 06/22/20 mcg/dose blistr powdr for inhalation (Advair Diskus) albuterol sulfate 90 mcg/actuation See Rx Instructions .Route 08/03/20 aerosol inhaler .COMPLEX #6.7 grams tamsulosin 0.4 mg capsule (Flomax) 0.4 mg PO DAILY #7 caps 04/13/21 sertraline 100 mg tablet 150 mg PO DAILY #135 tabs 05/18/21 temazepam 15 mg capsule 15 mg PO BEDTIME PRN sleep #30 caps 06/01/21 temazepam 15 mg capsule 15 mg PO BEDTIME PRN sleep #30 caps 06/02/21 meloxicam 15 mg tablet (Mobic) 15 mg PO Q DAY #90 tabs 06/14/21 prednisone 10 mg tablet 30 mg PO DAILY rheumatoid 07/29/21 arthritis #30 tabs apixaban 5 mg (74 tabs) tablets in 5 mg PO BID #74 ea 08/22/21 a dose pack (Eliquis DVT-PE Treat 30D Start) Allergies Allergy/AdvReac Type Severity Reaction Status Date / Time hydroxychloroquine Allergy Severe RASH FROM Verified 04/04/21 09:06 [HYDROXYCHLOROQUINE] PLAQUENIL hydrocodone [HYDROCODONE] Allergy Intermediate Itching, Verified 04/04/21 09:06 irritation, nausea oxycodone [OXYCODONE] Allergy Intermediate Itching, Verified 04/04/21 09:06 irritation, nausea indomethacin [INDOMETHACIN] AdvReac Severe FELT LIKE Verified 04/04/21 09:06 I WAS ON FIRE/PAIN Review of Systems Review of Systems Narrative: GENERAL: Denies chills, fatigue, malaise, fever, sweats, travel HEENT: Denies sinus pain, ear pain, sore throat, difficulty swallowing, neck pain RESPIRATORY: Denies dyspnea, cough, wheezing, hemoptysis, sputum. CARDIOVASCULAR: Denies chest pain, palpitations, orthopnea, edema GASTROINTESTINAL: Denies nausea, vomiting, abdominal pain, diarrhea, co nstipation, melena. : Denies dysuria, frequency, incontinence, hematuria, urinary retention, flank pain. MUSCULOSKELETAL: See HPI SKIN: No rash, no erythema, no pruritus NEUROLOGIC: Denies weakness, dizziness, headache, numbness, change in speech, confusion PSYCHIATRIC: No concerning psychosocial issues. 12 point review of systems is negative except for those stated above and HPI Patient History Medical History Anemia Arthritis Asthma Bronchitis Cat allergies Easy bruisability Endometriosis Fracture of sacrum Grief Head injury (~2013) Low back pain Migraines Mitral regurgitation Neck pain Nephrolithiasis Numbness Obstructive sleep apnea (adult) (pediatric) On antiepileptic therapy Patient has active durable power of state attorney (DPOA) designee for healthcare Pneumonia Rheumatoid arthritis in remission Right shoulder pain Right thigh pain RLS (restless legs syndrome) Seizure disorder (11/04/14) Sleep apnea Spell of altered cognition Thoracic spine fracture Tricuspid valve regurgitation Surgical History History of cataract removal with insertion of prosthetic lens History of surgery on arm Hx of tonsillectomy S/P foot surgery, right Status post bilateral cataract extraction Status post cholecystectomy Status post laparoscopy Family History Brother Age: 66 Diabetes mellitus Obesity Grandmother Rheumatoid aortitis CAD (coronary artery disease) Mother Age: 91 Osteoarthritis Heart murmur Hypertension Social History household members: significant other Smoking Status: Never smoker alcohol intake: current Smoking Status: Never smoker alcohol intake frequency: a few times a week Substance Use Type: marijuana Exam Initial Vital Signs Initial Vital Signs: Vital Signs Temperature 97.9 F 08/22/21 13:00 Pulse Rate 99 H 08/22/21 13:00 Respiratory Rate 16 08/22/21 13:00 Blood Pressure 141/79 H 08/22/21 13:00 Pulse Oximetry 98 08/22/21 13:00 Oxygen Delivery Method 08/22/21 13:00 GENERAL: Alert pleasant 66-year-old female and in no acute distress. HEENT: Head atraumatic,EOMI, pupils reactive, face symmetric, moist mucous membranes CARDIOVASCULAR: Regular rate and rhythm without murmurs, rubs or gallops. RESPIRATORY: Breath sounds equal bilaterally, no wheezes rales or rhonchi. EXTREMITIES: Normal range of motion, no clubbing or edema. Neurovascularly intact Right leg significantly swollen no erythema noted distal pedal pulse is intact NEUROLOGICAL: Alert and oriented x4. SKIN: Warm, dry, no laceration, no petechiae, no rashes or lesions. Course Orders Ordered: ED Orders 08/22/21 13:43 US periph venous low extrem rt Stat 08/22/21 16:15 CBC Auto Diff [Complete Blood Count AUTO DIFF] Stat CMP [Comprehensive Metabolic Panel] Stat D Dimer Stat Discontinued Medications Apixaban (Apixaban 5 Mg Tablet) 10 mg PO NOW ONE Stop: 08/22/21 17:49 Last Admin: 08/22/21 18:01 Dose: 10 mg Documented By: CTS Vital Signs Vital signs: Vital Signs - 8 hr 08/22/21 13:00 08/22/21 16:45 Temperature 97.9 F Pulse Rate 99 H 72 Respiratory Rate 16 Blood Pressure 141/79 H Pulse Oximetry 98 96 Oxygen Delivery Method Room Air MDM - Extremity (Nontraumatic) Lab Data Result diagrams: 08/22/21 16:15 08/22/21 16:15 Labs: Lab Results 08/22/21 08/22/21 08/22/21 Range/Units 16:15 16:15 16:15 WBC 5.3 (4.5-11.0) X10^3/uL RBC 4.24 (4.0-5.2) X10^6/uL Hgb 10.4 L (12.0-16.0) g/dL Hct 31.6 L (36-46) % MCV 74.5 L (80-100) fL MCH 24.5 L (26-34) PG MCHC 32.9 (30-36) % RDW 17.2 H (11.6-14.8) % Plt Count 245 (150-400) X10^3/uL Neut % (Auto) 57.2 (50-75) % Lymph % (Auto) 28.6 (25-40) % [place] % (Auto) 8.0 (3-14) % Eos % (Auto) 5.3 H (2-4) % Baso % (Auto) 0.9 (0-2) % Neut # (Auto) 3000 (4526-4978) /uL Lymph # (Auto) 1500 (9603-4437) /uL [place] # (Auto) 400 (0-900) /uL Eos # (Auto) 300 (0-450) /uL Baso # (Auto) 0 (0-100) /uL D-Dimer 878 H (<230) ng/mL Sodium 140 (137-145) mmol/L Potassium 4.1 (3.4-5.1) mmol/L Chloride 106 (98-107) mmol/L Carbon Dioxide 29 (22-32) mmol/L BUN 15 (7-17) mg/dL Creatinine 0.49 L (0.52-1.04) mg/dL Estimated GFR > 60 (>60) mL/min BUN/Creatinine Ratio 30.6 H (6-22) Glucose 107 (80-110) mg/dL Calcium 9.3 (8.4-10.2) mg/dL Total Bilirubin 0.3 (0.2-1.3) mg/dL AST 21 (14-36) IU/L ALT 14 (<35) IU/L Alkaline Phosphatase 79 (38-126) U/L Total Protein 6.7 (6.3-8.2) g/dL Albumin 4.0 (3.5-5.0) g/dL Globulin 2.7 (1.7-4.1) g/dL Albumin/Globulin Ratio 1.5 (1.0-2.8) Urine Dip Bedside Urine Glucose Negative Bedside Urine Bilirubin - Negative Bedside Urine Ketone - Negative Urine Specific [place] 1.010 Bedside Urine Occult Blood - Negative Bedside Urine pH 6.0 Bedside Urine Protein - Negative Bedside Urine Urobilinogen - Negative Bedside Urine Nitrite - Negative Bedside Urine Leukocytes - Negative Esterase Imaging Data US - DVT: Radiologist's Impression: : Ursula Boggs MR#: [id number] : 1955 Acct:[id number] Age/Sex: 66 / F Date of Service: 08/22/21 Loc: ED Accession Number: [id number] ?? Procedure: US periph venous low extrem rt Ordering Provider: Joanie James D.O. PROCEDURE:? US PERIPH VENOUS LOW EXTREM RT ? INDICATIONS:? Right leg swelling ? TECHNIQUE:? Real-time imaging, as well as color and pulse Doppler interrogation, were performed of the lower extremity deep veins from the inguinal ligament to the popliteal fossa.? ? COMPARISON:? None. ? FINDINGS:? The common femoral, femoral and popliteal veins are normally compressible, and free of intraluminal thrombus.? Color and pulse Doppler demonstrate normal phasic intraluminal flow.? There is normal augmentation response to distal compression maneuver. ? ? IMPRESSION:? No evidence of deep vein thrombosis involving the right lower ext remity. ? ? Dictated by: Lesly Thompson MD, PhD on 08/22/2021 at 14:44 ? ? [facility] Narrative Medical decision making narrative: Patient does have significantly unilateral right leg swelling she recently was started on Actemra, which can have complication of thrombosis. Blood work was ordered after negative DVT study D-dimer significantly elevated at almost 900. High suspicion for DVT will start her on Eliquis recommend repeat ultrasound in 1 week. She actually has an appointment with her new PCP tomorrow. Discussed risk and benefits of starting her on anticoagulation. She has a has bled score of 0 She understands there is high suspicion but no definite diagnosis at this time. Agrees to anticoagulation with close follow-up and repeat imaging. Discharge Plan Departure Patient Disposition: Home Clinical Impression: DVT (deep venous thrombosis) Instructions: DI for Deep Vein Thrombosis Activity Restrictions/Additional Instructions: *You have been diagnosed with high probability of DVT *What to do: At this time here ultrasound is negative. However based on blood work symptoms and risk factors I have a high suspicion that you may have a DVT. At this time I recommend treating with anticoagulation in having a repeat ultrasound ordered by your new PCP in 1 week *Continue to take medications as directed Eliquis 10 mg twice a day for 7 days, then 5 mg twice daily-->SENT TO [facility] *Follow up with your primary care provider in 2-3 days or call [phone] *Return to ER if you should have fall, hit head, bleeding that will not stop, increased pain swelling chest pain shortness of breath palpitations or any new, worsening or concerning symptoms Prescriptions: New Eliquis DVT-PE Treat 30D Start 5 mg (74 tabs) tablets,dose pack 5 mg PO BID Qty: 74 0RF No Action fluticasone propion-salmeterol [Advair Diskus] 100-50 mcg/dose blister with device 1 ea INHALATION BID Qty: 60 1RF albuterol sulfate 90 mcg/actuation HFA aerosol inhaler See Rx Instructions .ROUTE .COMPLEX Qty: 6.7 0RF Dose Instruction: INHALE 2 PUFF BY MOUTH INHALATION EVERY 4 TO 6 HOURS NEEDED FOR SHORTNESS OF BREATH OR WHEEZING Rx Instructions: INHALE 2 PUFF BY MOUTH INHALATION EVERY 4 TO 6 HOURS NEEDED FOR SHORTNESS OF BREATH OR WHEEZING sertraline 100 mg tablet 150 mg PO DAILY Qty: 135 0RF temazepam 15 mg capsule 15 mg PO BEDTIME PRN (Reason: sleep) Qty: 30 3RF meloxicam [Mobic] 15 mg tablet 15 mg PO Q DAY Qty: 90 1RF Hold Instructions: while taking prednisone prednisone 10 mg tablet 30 mg PO DAILY Qty: 30 0RF Rx Instructions: Contact Rheum or us for taper if on pred beyond 5-7 days. Thanks. Caltrate 600 plus D 600 mg (1,500 mg)-800 unit tablet,chewable 1 tab PO DAILY Hold Instructions: kidney stones (DME) iron and minerals 0 .Route .MEDSUPPLY temazepam 15 mg capsule 15 mg PO BEDTIME PRN (Reason: sleep) Qty: 30 5RF tamsulosin [Flomax] 0.4 mg capsule 0.4 mg PO DAILY Qty: 7 0RF cetirizine [Zyrtec] 10 mg Tablet 10 mg PO DAILY Referrals: Ena Blanca PA-C [Primary Care Provider] - Visit Report Forms: Patient Portal/API
--- NOTE | 2021-08-22 13:43 | DI.US.S_ITS ---
PROCEDURE: US PERIPH VENOUS LOW EXTREM RT INDICATIONS: Right leg swelling TECHNIQUE: Real-time imaging, as well as color and pulse Doppler interrogation, were performed of the lower extremity deep veins from the inguinal ligament to the popliteal fossa. COMPARISON: None. FINDINGS: The common femoral, femoral and popliteal veins are normally compressible, and free of intraluminal thrombus. Color and pulse Doppler demonstrate normal phasic intraluminal flow. There is normal augmentation response to distal compression maneuver. IMPRESSION: No evidence of deep vein thrombosis involving the right lower extremity. Dictated by: Lesly Thompson MD, PhD on 08/22/2021 at 14:44 Approved by: Lesly Thompson MD, PhD on 08/22/2021 at 14:44
[2021-08-22 16:45] VITALS: PULSE 72; O2SAT 96
[2021-08-22 17:04] LABS: Add Manual Diff / Slide Review NO; Basophils Absolute Auto 0 /uL (0-100); Basophils Percent Auto 0.9 % (0-2); Eosinophils Absolute Auto 300 /uL (0-450); Eosinophils Percent Auto 5.3 % (2-4); Hematocrit 31.6 % (36-46); Hemoglobin 10.4 g/dL (12.0-16.0); Lymphocytes Absolute Auto 1500 /uL (1100-4500); Lymphocytes Percent Auto 28.6 % (25-40); Mean Corpuscular HGB Conc 32.9 % (30-36); Mean Corpuscular Hemoglobin 24.5 PG (26-34); Mean Corpuscular Volume 74.5 fL (80-100); Monocytes Absolute Auto 400 /uL (0-900); Neutrophils Absolute Auto 3000 /uL (1500-7000); Neutrophils Percent Auto 57.2 % (50-75); Platelet Count 245 X10^3/uL (150-400); Red Blood Cell Count 4.24 X10^6/uL (4.0-5.2); Red Cell Distribution Width 17.2 % (11.6-14.8); White Blood Cell Count 5.3 X10^3/uL (4.5-11.0)
[2021-08-22 17:18] LABS: D Dimer 878 ng/mL (<230)
[2021-08-22 17:26] LABS: Alanine Aminotransferase 14 IU/L (<35); Albumin Globulin Ratio 1.5 (1.0-2.8); Alkaline Phosphatase 79 U/L (38-126); Aspartate Aminotransferase 21 IU/L (14-36); BUN Creatinine Ratio 30.6 (6-22); Bilirubin Total 0.3 mg/dL (0.2-1.3); Blood Urea Nitrogen 15 mg/dL (7-17); Calcium 9.3 mg/dL (8.4-10.2); Carbon Dioxide 29 mmol/L (22-32); Chloride 106 mmol/L (98-107); Estimated Glomerular Filt Rate > 60 mL/min (>60); Globulin 2.7 g/dL (1.7-4.1); Glucose 107 mg/dL (80-110); HEMOLYSIS < 15 (0-50); Potassium 4.1 mmol/L (3.4-5.1); Sodium 140 mmol/L (137-145); Total Protein 6.7 g/dL (6.3-8.2)
[2021-08-22] MEDS: APIXABAN 5 MG TABLET 10 MG PO (18:01)
== END 2021-08-22 18:13 | disposition home or self-care (01) ==
PROVIDERS: Emergency Provider Emergency Medicine; PCP Physician Assistant
DX: I82.401 Acute embolism and thrombosis of unspecified deep veins of right lower extremity (principal)
CPT/HCPCS: 80053; 81003; 85025; 85379; 93971; 99283

== ENCOUNTER → 2021-08-30 09:50 | Outpatient (CLI) | payer OTHER, SELFPAY ==
[2019-09-24 09:17] VITALS: BMI 31.0
--- NOTE | 2021-08-30 | DI.US.S_ITS ---
PROCEDURE: US [facility] VENOUS LOW EXTREM RT INDICATIONS: EDEMA TECHNIQUE: Real-time imaging, as well as color and pulse Doppler interrogation, were performed of the lower extremity deep veins from the inguinal ligament to the popliteal fossa. COMPARISON: [facility], , [facility] VENOUS LOW EXTREM RT, 08/22/2021, 13:51. FINDINGS: The common femoral, femoral and popliteal veins are normally compressible, and free of intraluminal thrombus. Color and pulse Doppler demonstrate normal phasic intraluminal flow. There is normal augmentation response to distal compression maneuver. IMPRESSION: Negative right lower extremity duplex venous ultrasound for DVT. Dictated by: Jose Chapman M.D. on 08/30/2021 at 12:46 Approved by: Jose Chapman M.D. on 08/30/2021 at 12:47
== END ==
PROVIDERS: PCP Physician Assistant; Referring Provider Physician Assistant; Visit Provider Physician Assistant
DX: R22.41 Localized swelling, mass and lump, right lower limb (principal)
CPT/HCPCS: 93971

== ENCOUNTER → 2021-11-24 16:46 | Outpatient (CLI) | payer OTHER, SELFPAY ==
[2019-09-24 09:17] VITALS: BMI 31.0
--- NOTE | 2021-11-24 16:47 | DI.MG.S_ITS ---
BILATERAL DIGITAL SCREENING MAMMOGRAM 3D/2D WITH CAD: 11/24/2021 CLINICAL: Routine screening. Family history of breast cancer. Comparison is made to exams dated: 05/04/2020 mammogram and 06/10/2018 mammogram - [facility]. Both breasts are heterogeneously dense, which may obscure small masses (category c / 51-75% glandular tissue). Current study was also evaluated with a Computer Aided Detection (CAD) system. No significant masses, calcifications, or other findings are seen in either breast. There has been no significant interval change. IMPRESSION: NEGATIVE There is no mammographic evidence of malignancy. A 1 year screening mammogram is recommended. This exam was interpreted at Station ID: [id number]. NOTE: For mammograms, a report in lay terms will be sent to the patient. Approximately 15% of breast malignancies will not be visualized mammographically. In the management of a palpable breast mass, a negative mammogram must not discourage biopsy of a clinically suspicious lesion. Electronically Signed By: Jose calhoun/mike:11/25/2021 10:17:34 letter sent: Normal Exam ACR BI-RADS Category 1: Negative [id number]
== END ==
PROVIDERS: PCP Physician Assistant; Referring Provider Physician Assistant; Visit Provider Physician Assistant
DX: Z12.31 Encounter for screening mammogram for malignant neoplasm of breast (principal); Z80.3 Family history of malignant neoplasm of breast
CPT/HCPCS: 77063; 77067

== ENCOUNTER → 2022-12-12 15:49 | Outpatient (CLI) | payer OTHER, SELFPAY ==
[2019-09-24 09:17] VITALS: BMI 31.0
--- NOTE | 2022-12-12 | DI.MG.S_ITS ---
BILATERAL DIGITAL SCREENING MAMMOGRAM 3D/2D WITH CAD: 12/12/2022 CLINICAL: Routine screening. Family history of breast cancer. Comparison is made to exams dated: 11/24/2021 mammogram, 05/04/2020 mammogram, 06/10/2018 mammogram, and 11/20/2016 mammogram - [facility]. Both breasts are heterogeneously dense, which may obscure small masses (category c / 51-75% glandular tissue). Current study was also evaluated with a Computer Aided Detection (CAD) system. There is a biopsy clip in the right breast. No significant masses, calcifications, or other findings are seen in either breast. There has been no significant interval change. IMPRESSION: NEGATIVE There is no mammographic evidence of malignancy. A 1 year screening mammogram is recommended. Based on the Tyrer Cuzick model (a risk assessment model) the patient's lifetime risk is 16.7% and her 10 year risk is 8.6%. According to the ACR, ACS, and NCCN guidelines, an annual breast MRI exam along with mammogram is recommended if the patient's lifetime risk is 20% or greater. This exam was interpreted at Station ID: [id number]. NOTE: For mammograms, a report in lay terms will be sent to the patient. Approximately 15% of breast malignancies will not be visualized mammographically. In the management of a palpable breast mass, a negative mammogram must not discourage biopsy of a clinically suspicious lesion. Electronically Signed By: Jose calhoun/mike:12/13/2022 07:09:55 letter sent: Normal Exam ACR BI-RADS Category 1: Negative [id number]
== END ==
PROVIDERS: PCP Physician Assistant; Referring Provider Physician Assistant; Visit Provider Physician Assistant
DX: Z12.31 Encounter for screening mammogram for malignant neoplasm of breast (principal); Z80.3 Family history of malignant neoplasm of breast
CPT/HCPCS: 77063; 77067

== ENCOUNTER → 2023-03-11 15:33 | Outpatient (CLI) | payer OTHER, SELFPAY ==
[2019-09-24 09:17] VITALS: BMI 31.0
--- NOTE | 2023-03-11 15:37 | DI.RAD.S_ITS ---
PROCEDURE: XR HAND LT MIN 3V INDICATIONS: Middle/ring finger injury TECHNIQUE: 3 views of the hand(s) acquired. COMPARISON: [facility], CR, XR HAND 3VW LT, 06/25/2015, 9:06. [facility], CR, XR HAND RT MIN 3V, 10/09/2018, 12:37. FINDINGS: Bones: There is severe interphalangeal joint space narrowing, articular surface sclerosis and osteophytosis. There is also severe degenerative change at the 1st CMC joint and the triscaphe joint. There is a fractured posterior osteophyte at the 4th DIP joint. There is a questionable fracture at the base of the left 4th proximal phalanx Soft tissues: No suspicious soft tissue calcifications. IMPRESSION: 1. Probable displaced fracture at the base of the left 4th proximal phalanx. 2. Fracture of a dorsal osteophyte of the left 4th DIP joint. 3. Severe osteoarthritis. Dictated by: Peggy Velasquez M.D. on 03/11/2023 at 19:20 Approved by: Peggy Velasquez M.D. on 03/11/2023 at 19:32
== END ==
PROVIDERS: PCP Physician Assistant; Referring Provider Nurse Practitioner Family; Visit Provider Nurse Practitioner Family
DX: S62.635A Displaced fracture of distal phalanx of left ring finger, initial encounter for closed fracture (principal); M18.12 Unilateral primary osteoarthritis of first carpometacarpal joint, left hand; M19.032 Primary osteoarthritis, left wrist; X58.XXXA Exposure to other specified factors, initial encounter
CPT/HCPCS: 73130

== ENCOUNTER 2023-10-17 08:40 | Emergency (ER) | payer OTHER, SELFPAY ==
[2019-09-24 09:17] VITALS: BMI 31.0
[2023-10-17] VITALS (18 sets, daily range): BP systolic 119–143; BP diastolic 60–93; PULSE 57–70; RESP 12–37; TEMP 36.6–37.1; O2SAT 94–97; BMI 32.3
--- NOTE | 2023-10-17 09:03 | ED.NEUROSD ---
HPI - Neuro Symptoms/Deficit General Chief Complaint: Neuro Symptoms/Deficit Stated Complaint: thinks she had TIA Time Seen by Provider: 10/17/23 08:58 Source: patient Mode of arrival: Ambulatory History of Present Illness HPI Narrative: Patient is a 68-year-old female past medical history of rheumatoid arthritis, asthma, comes into the ED from home for evaluation of weakness, she states that she had some mild tingling/weakness of her left side at around 8:00 a.m. but has now completely resolved, states it lasted for only a few seconds, she denies any syncopal or presyncopal symptoms prior or during the episode. She denies any trauma or falls. She currently denies any headache visual disturbances chest pain shortness breath fever chills nausea vomiting abdominal pain weakness or any other GI/ symptoms. On Anticoagulants: No Related Data Home Medications Medication Instructions Recorded Confirmed calcium carbonate 600 mg-vitamin 1 tab PO DAILY 12/06/20 09/29/23 D3 20 mcg (800 unit) chewable tablet (Caltrate 600 plus D) iron and minerals 12/06/20 09/29/23 Previous Rx's Medication Instructions Recorded fluticasone 100 mcg-salmeterol 50 1 ea inhalation BID #60 ea 06/22/20 mcg/dose blistr powdr for inhalation (Advair Diskus) albuterol sulfate 90 mcg/actuation See Rx Instructions .Route 08/03/20 aerosol inhaler .COMPLEX #6.7 grams tamsulosin 0.4 mg capsule (Flomax) 0.4 mg PO DAILY #7 caps 04/13/21 sertraline 100 mg tablet 150 mg (1.5 x 100 mg) PO DAILY 05/18/21 #135 tabs prednisone 10 mg tablet 30 mg (3 x 10 mg) PO DAILY 07/29/21 rheumatoid arthritis #30 tabs apixaban 5 mg (74 tabs) tablets in 5 mg PO BID #74 ea 08/22/21 a dose pack (Eliquis DVT-PE Treat 30D Start) temazepam 15 mg capsule 15 mg PO BEDTIME PRN sleep #30 caps 09/08/21 meloxicam 15 mg tablet See Rx Instructions .Route 10/18/21 .COMPLEX #90 tabs azelastine 0.05 % eye drops 1 drp EYE-BOTH BID #6 mL 09/29/23 Allergies Allergy/AdvReac Type Severity Reaction Status Date / Time hydroxychloroquine Allergy Severe RASH FROM Verified 09/29/23 13:08 [HYDROXYCHLOROQUINE] PLAQUENIL hydrocodone [HYDROCODONE] Allergy Intermediate Itching, Verified 09/29/23 13:08 irritation, nausea oxycodone [OXYCODONE] Allergy Intermediate Itching, Verified 09/29/23 13:08 irritation, nausea indomethacin [INDOMETHACIN] AdvReac Severe FELT LIKE Verified 09/29/23 13:08 I WAS ON FIRE/PAIN Review of Systems Review of Systems Narrative: HEENT: Denies headache, eye drainage, eye irritation, head trauma, sore throat, voice change Cardiovascular: Denies any chest pain, palpitations, shortness of breath, tachycardia Respiratory: Denies any shortness of breath, cough, wheeze, stridor GI/: Denies any abdominal pain, nausea, vomiting, diarrhea, bright red blood per rectum, melanotic stools, urinary frequency, urinary retention, dysuria, hematuria MSK: Denies any joint pain, muscle pains, swelling Skin: Denies any rashes, lesions, discoloration Neuro: Denies any headache, lightheadedness, dizziness, fainting, left-sided weakness resolved Psych: Denies SI/HI Hematologic/Lymphatic On Anticoagulants: No Patient History Medical History Right thigh pain Right shoulder pain Nephrolithiasis Patient has active durable power of business attorney (DPOA) designee for healthcare Mitral regurgitation Cat allergies Obstructive sleep apnea (adult) (pediatric) Spell of altered cognition Grief On antiepileptic therapy Thoracic spine fracture Fracture of sacrum Head injury (~2013) Anemia Easy bruisability Rheumatoid arthritis in remission Neck pain Arthritis Low back pain Endometriosis Tricuspid valve regurgitation Bronchitis Pneumonia Sleep apnea Asthma RLS (restless legs syndrome) Numbness Migraines Seizure disorder (11/04/14) Surgical History History of surgery on arm S/P foot surgery, right Hx of tonsillectomy Status post bilateral cataract extraction Status post cholecystectomy History of cataract removal with insertion of prosthetic lens Status post laparoscopy Family History Brother Age: 68 Diabetes mellitus Obesity Grandmother Rheumatoid aortitis CAD (coronary artery disease) Mother Age: 93 Osteoarthritis Heart murmur Hypertension Social History household members: significant other Smoking Status: Never smoker alcohol intake: current Smoking Status: Never smoker alcohol intake frequency: a few times a week Substance Use Type: marijuana Exam Narrative Exam Narrative: General: Cooperative, comfortable, well-developed, not in acute distress HEENT: Normocephalic, atraumatic, PERRLA, normal sclera, eyelids normal, Neck: Active full range of motion, atraumatic Chest: Normal to inspection, negative crepitus, no overlying erythema ecchymosis Respiratory: Normal respiratory effort, not in acute respiratory distress, clear to auscultation bilaterally negative cough, wheeze, tachypnea, rhonchi, rales Cardiology: Regular rate rhythm negative gallop, murmur, rubs GI/: Normal to inspection, soft, nonrigid, no tenderness to palpation, exam deferred MSK: Full range of active range of motion of all 4 extremities, atraumatic Skin: No rashes lesions noted Neuro: Alert awake oriented x3, moves all 4 extremities spontaneously, cranial nerves intact, able to answer all questions appropriately follows commands appropriately, NIH of 0 Psych: Cooperative, negative suicidal or homicidal ideations Initial Vital Signs Initial Vital Signs: Vital Signs Temperature 98.8 F 10/17/23 08:52 Pulse Rate 68 10/17/23 08:52 Respiratory Rate 18 10/17/23 08:52 Blood Pressure 135/89 10/17/23 08:52 Pulse Oximetry 97 10/17/23 08:52 Oxygen Delivery Method Room Air 10/17/23 08:52 Course Orders Ordered: ED Orders 10/17/23 09:06 CT head/brain wo con Stat EKG-12 Lead Stat 10/17/23 09:08 XR chest 2V Stat 10/17/23 09:11 Complete Blood Count AUTO DIFF Stat Comprehensive Metabolic Panel Stat PTT Partial Thromboplastin Edgar Stat Prothrombin Time INR Stat Troponin & CK Cardiac Panel Stat 10/17/23 09:20 COVID19 -Nasal RAPID Stat 10/17/23 09:31 Urinalysis and Microscopic Stat 10/17/23 09:54 CT angio head and neck Stat Vital Signs Vital signs: Vital Signs - 8 hr 10/17/23 08:52 10/17/23 08:52 10/17/23 08:57 Temperature 98.8 F Pulse Rate 68 70 68 Respiratory Rate 18 26 H 19 Blood Pressure 135/89 Pulse Oximetry 97 96 97 Oxygen Delivery Method Room Air 10/17/23 08:57 10/17/23 09:00 10/17/23 09:00 Temperature Pulse Rate 69 Respiratory Rate 23 Blood Pressure 135/89 141/80 H Pulse Oximetry 97 Oxygen Delivery Method 10/17/23 09:10 10/17/23 09:20 10/17/23 09:20 Temperature Pulse Rate 68 66 Respiratory Rate 28 H 24 Blood Pressure 143/76 H Pulse Oximetry 96 94 Oxygen Delivery Method 10/17/23 09:39 10/17/23 09:40 10/17/23 09:40 Temperature Pulse Rate 66 61 Respiratory Rate 17 16 Blood Pressure 142/93 H Pulse Oximetry 97 96 Oxygen Delivery Method 10/17/23 09:55 10/17/23 09:56 10/17/23 09:56 Temperature Pulse Rate 66 60 Respiratory Rate 17 14 Blood Pressure 140/67 Pulse Oximetry 96 95 Oxygen Delivery Method 10/17/23 10:00 10/17/23 10:00 10/17/23 10:10 Temperature Pulse Rate 58 L 58 L Respiratory Rate 16 16 Blood Pressure 127/68 Pulse Oximetry 95 94 Oxygen Delivery Method 10/17/23 10:10 10/17/23 10:20 10/17/23 10:20 Temperature Pulse Rate 61 Respiratory Rate 37 H Blood Pressure 119/67 136/72 Pulse Oximetry 96 Oxygen Delivery Method 10/17/23 10:30 10/17/23 10:31 10/17/23 10:31 Temperature Pulse Rate 59 L 59 L Respiratory Rate 22 15 Blood Pressure 128/60 Pulse Oximetry 96 96 Oxygen Delivery Method 10/17/23 10:40 10/17/23 10:40 Temperature Pulse Rate 57 L Respiratory Rate 12 Blood Pressure 129/65 Pulse Oximetry 96 Oxygen Delivery Method MDM - Neuro Symptoms/Deficit Differential Diagnosis Differential diagnosis: Likely cerebrovascular accident and other (Electrolyte abnormality, pneumonia,) Medical Records Attestation: I reviewed the patient's medical records. Lab Data Attestation: I reviewed the patient's lab results. 10/17/23 09:11 10/17/23 09:11 Labs: Lab Results 10/17/23 10/17/23 10/17/23 Range/Units 09:11 09:20 09:31 WBC 4.6 (4.5-11.0) X10^3/uL RBC 4.11 (4.0-5.2) X10^6/uL Hgb 12.3 (12.0-16.0) g/dL Hct 36.1 (36-46) % MCV 87.9 (80-100) fL MCH 29.9 (26-34) PG MCHC 34.0 (30-36) % RDW 14.0 (11.6-14.8) % Plt Count 155 (150-400) X10^3/uL Neut % (Auto) 59.1 (50-75) % Lymph % (Auto) 28.0 (25-40) % [place] % (Auto) 8.1 (3-14) % Eos % (Auto) 4.2 H (2-4) % Baso % (Auto) 0.6 (0-2) % Neut # (Auto) 2700 (2644-1315) /uL Lymph # (Auto) 1300 (5066-6219) /uL [place] # (Auto) 400 (0-900) /uL Eos # (Auto) 200 (0-450) /uL Baso # (Auto) 0 (0-100) /uL PT 11.9 (9.4-12.5) SECONDS INR 1.0 (0.9-1.3) APTT 32 (25.1-36.5) SECONDS Sodium 137 (137-145) mmol/L Potassium 4.0 (3.4-5.1) mmol/L Chloride 107 (98-107) mmol/L Carbon Dioxide 25 (22-32) mmol/L BUN 18 H (7-17) mg/dL Creatinine 0.57 (0.52-1.04) mg/dL Estimated GFR > 60 (>60) mL/min BUN/Creatinine Ratio 31.6 H (6-22) Glucose 99 (80-110) mg/dL Calcium 9.3 (8.4-10.2) mg/dL Total Bilirubin 0.6 (0.2-1.3) mg/dL AST 23 (14-36) IU/L ALT 19 (<35) IU/L Alkaline Phosphatase 68 (38-126) U/L Total Creatine Kinase 53 (30-135) U/L Troponin I < 0.012 (0.01-0.034) ng/mL Total Protein 6.5 (6.3-8.2) g/dL Albumin 4.0 (3.5-5.0) g/dL Globulin 2.5 (1.7-4.1) g/dL Albumin/Globulin Ratio 1.6 (1.0-2.8) Urine Color Yellow Urine Appearance Clear Urine pH 5.0 (4.5-8.0) Ur Specific [place] <=1.005 (1.000-1.035) Urine Protein Negative (Negative) Urine Glucose (UA) Negative (Negative) g/dL Urine Ketones Negative (NEGATIVE) Urine Occult Blood 1+ H (Negative) Urine Nitrate Negative (Negative) Urine Bilirubin Negative (NEGATIVE) Urine Urobilinogen 0.2 (0.2) E.U./dL Ur Leukocyte Esterase Negative (NEGATIVE) Urine RBC 0-1/hpf (0-5/HPF) Urine WBC None seen (0-5/HPF) Ur Squamous Epith Cells 1-5 /hpf (0-5/HPF) Urine Bacteria None seen (None) Ur Culture Indicated? Cult not indicated Vol Urine Centrifuged 10ml (spun) SARS-CoV-2 (PCR) Negative (Negative) Point of Care Testing Glucose POC 95 ECG Data Attestation: I personally reviewed and interpreted this ECG as follows: Interpretation: EKG interpreted ED physician, sinus 60 beats per minute, QTC 414, normal axis, nonspecific ST changes, no STEMI MDM Narrative Medical decision making narrative: Patient is a 68-year-old female with past medical history of asthma, rheumatoid arthritis presented for left-sided weakness that resolved prior to arrival. Upon initial evaluation patient NIH of 0, focal deficits, she stated that her symptoms were only lasting for several seconds and resolved without any intervention. She denied any syncopal presyncopal symptoms and is completely asymptomatic here in the emergency department. CT head and CT head and neck are unremarkable. Patient without any focal deficits noted here, informed her of the possible need for admission for Cardiology and Neurology consultation for MRI, she states that she would rather follow up in outpatient setting, patient was given strict return precautions understands and agrees with being discharged home with outpatient follow-up Discharge Plan Departure Patient Disposition: Home Clinical Impression: Weakness Activity Restrictions/Additional Instructions: Please follow-up with your primary care doctor as well as Cardiology and Neurology for further evaluation and treatment of your symptoms Prescriptions: No Action azelastine 0.05 % drops 1 drp EYE-BOTH BID Qty: 6 0RF fluticasone propion-salmeterol [Advair Diskus] 100-50 mcg/dose blister with device 1 ea INHALATION BID Qty: 60 1RF albuterol sulfate 90 mcg/actuation HFA aerosol inhaler See Rx Instructions .ROUTE .COMPLEX Qty: 6.7 0RF Dose Instruction: INHALE 2 PUFF BY MOUTH INHALATION EVERY 4 TO 6 HOURS NEEDED FOR SHORTNESS OF BREATH OR WHEEZING Rx Instructions: INHALE 2 PUFF BY MOUTH INHALATION EVERY 4 TO 6 HOURS NEEDED FOR SHORTNESS OF BREATH OR WHEEZING sertraline 100 mg tablet 150 mg PO DAILY Qty: 135 0RF prednisone 10 mg tablet 30 mg PO DAILY Qty: 30 0RF Rx Instructions: Contact Rheum or us for taper if on pred beyond 5-7 days. Thanks. temazepam 15 mg capsule 15 mg PO BEDTIME PRN (Reason: sleep) Qty: 30 1RF Rx Instructions: Please call for additional refills as needed meloxicam 15 mg tablet See Rx Instructions .ROUTE .COMPLEX Qty: 90 1RF Hold Instructions: while taking prednisone Dose Instruction: Take 1 tablet (15 mg) by mouth daily Rx Instructions: Take 1 tablet (15 mg) by mouth daily Caltrate 600 plus D 600 mg (1,500 mg)-800 unit tablet,chewable 1 tab PO DAILY Hold Instructions: kidney stones (DME) iron and minerals 0 .Route .MEDSUPPLY tamsulosin [Flomax] 0.4 mg capsule 0.4 mg PO DAILY Qty: 7 0RF Anuj DVT-PE Treat 30D Start 5 mg (74 tabs) tablets,dose pack 5 mg PO BID Qty: 74 0RF Referrals: Ena Blanca PA-C [Primary Care Provider] - Stand Alone Forms: Patient Portal/API
--- NOTE | 2023-10-17 09:06 | DI.CT.S_ITS ---
PROCEDURE: CT HEAD/BRAIN WO CON INDICATIONS: Left-sided weakness TECHNIQUE: Noncontrast 4.5 mm thick angled axial sections acquired from the foramen magnum to the vertex, with coronal and sagittal reformats. For radiation dose reduction, the following was used: automated exposure control, adjustment of mA and/or kV according to patient size. COMPARISON: None. FINDINGS: Image quality: Diagnostic. CSF spaces: Basal cisterns are patent. No extra-axial fluid collections. The ventricles are symmetric in size and shape. Brain: No intracranial bleeds or masses. There is cerebral volume loss for age, with resultant ventricular and sulcal prominence. There are periventricular and deep white matter chronic small vessel ischemic changes. There is intracranial internal carotid artery atherosclerosis. Skull and face: Calvarium and visualized facial bones appear intact, without suspicious lesions. Sinuses: Visualized sinuses and mastoids are clear. IMPRESSION: No acute intracranial pathology. Dictated by: Jose Chapamn M.D. on 10/17/2023 at 10:10 Approved by: Jose Chapman M.D. on 10/17/2023 at 10:17
--- NOTE | 2023-10-17 09:08 | DI.RAD.S_ITS ---
PROCEDURE: XR CHEST 2V INDICATIONS: Weakness TECHNIQUE: 2 views of the chest were acquired. COMPARISON: None. FINDINGS: Surgical changes and devices: None. Lungs and pleura: Lungs are clear. No pleural effusions or pneumothorax. Mediastinum: Mediastinal contours are normal. Large hiatal hernia. Heart size is normal. Bones and chest wall: No suspicious bony abnormalities. Soft tissues appear unremarkable. IMPRESSION: Large hiatal hernia. No evidence acute pulmonary process. Dictated by: Jose Chapman M.D. on 10/17/2023 at 9:35 Approved by: Jose Chapman M.D. on 10/17/2023 at 9:40
[2023-10-17 09:18] LABS: Add Manual Diff / Slide Review NO; Basophils Absolute Auto 0 /uL (0-100); Basophils Percent Auto 0.6 % (0-2); Eosinophils Absolute Auto 200 /uL (0-450); Eosinophils Percent Auto 4.2 % (2-4); Hematocrit 36.1 % (36-46); Hemoglobin 12.3 g/dL (12.0-16.0); Lymphocytes Absolute Auto 1300 /uL (1100-4500); Mean Corpuscular Hemoglobin 29.9 PG (26-34); Mean Corpuscular Volume 87.9 fL (80-100); Monocytes Absolute Auto 400 /uL (0-900); Monocytes Percent Auto 8.1 % (3-14); Neutrophils Absolute Auto 2700 /uL (1500-7000); Neutrophils Percent Auto 59.1 % (50-75); Platelet Count 155 X10^3/uL (150-400); Red Blood Cell Count 4.11 X10^6/uL (4.0-5.2); White Blood Cell Count 4.6 X10^3/uL (4.5-11.0)
[2023-10-17 09:26] LABS: Prothrombin Time 11.9 SECONDS (9.4-12.5)
[2023-10-17 09:29] LABS: PTT Partial Thromboplastin Tim 32 SECONDS (25.1-36.5)
[2023-10-17 09:30] LABS: Alanine Aminotransferase 19 IU/L (<35); Albumin Globulin Ratio 1.6 (1.0-2.8); Alkaline Phosphatase 68 U/L (38-126); Aspartate Aminotransferase 23 IU/L (14-36); BUN Creatinine Ratio 31.6 (6-22); Bilirubin Total 0.6 mg/dL (0.2-1.3); Blood Urea Nitrogen 18 mg/dL (7-17); Calcium 9.3 mg/dL (8.4-10.2); Carbon Dioxide 25 mmol/L (22-32); Chloride 107 mmol/L (98-107); Creatine Kinase 53 U/L (30-135); Estimated Glomerular Filt Rate > 60 mL/min (>60); Globulin 2.5 g/dL (1.7-4.1); Glucose 99 mg/dL (80-110); HEMOLYSIS < 15 (0-50); Sodium 137 mmol/L (137-145); Total Protein 6.5 g/dL (6.3-8.2)
--- NOTE | 2023-10-17 09:37 | EKG_ITS ---
[address] [address] Test Date: 2023-10-17 Pat Name: Ursula Boggs Department: [facility] Room: Gender: Female [employer] Inspector: CHERYL : 1955 Requested By: Order Number: [id number] Reading MD: Ji Perry Measurements Intervals [place] Rate: 60 P: 7 OR: 194 QRS: 17 QRSD: 88 T: 4 QT: 414 QTc: 414 Interpretive Statements Normal sinus rhythm Electronically Signed On 10-22-2023 9:10:54 PDT by Ji Perry
[2023-10-17 09:39] LABS: COVID19 -Nasal RAPID Negative (Negative)
[2023-10-17 09:42] LABS: Troponin I < 0.012 ng/mL (0.01-0.034)
[2023-10-17 09:47] LABS: Appearance Urine UA CLEAR; Bilirubin Urine UA NEGATIVE (NEGATIVE); Color Urine UA YELLOW; Glucose Urine UA NEGATIVE (Negative); Ketones Urine UA NEGATIVE (NEGATIVE); Leukocyte Esterase Urine UA NEGATIVE (NEGATIVE); Nitrite Urine UA NEGATIVE (Negative); Occult Blood Urine UA 1+ (Negative); Protein Urine UA NEGATIVE (Negative); Specific Gravity Urine UA <=1.005 (1.000-1.035); Urobilinogen Urine UA 0.2 E.U./dL (0.2)
[2023-10-17 09:48] LABS: Urine Volume 10mL (spun)
[2023-10-17 09:50] LABS: Bacteria Urine None Seen; Culture Indicated Urine Cult Not Indicated; RBC Urine 0-1/HPF (0-5/HPF); Squamous Epithelial Cell Urine 1-5 /HPF (0-5/HPF); WBC Urine None Seen (0-5/HPF)
--- NOTE | 2023-10-17 09:54 | DI.CT.S_ITS ---
PROCEDURE: CT ANGIO HEAD AND NECK INDICATIONS: Left-sided weakness TECHNIQUE: After the administration of intravenous contrast, 1 mm thick sections acquired from the aortic arch through the [place] of [place]. 3-dimensional fccvrdf-yzwmqijqf-imhpefziyx (MIP) and/or volume rendering reformats were acquired of the central intracranial vasculature and neck separately. For radiation dose reduction, the following was used: automated exposure control, adjustment of mA and/or kV according to patient size. COMPARISON: [facility], CT, CT HEAD/BRAIN WO CON, 10/17/2023, 9:51. FINDINGS: Image quality: Diagnostic. BRAIN: CSF spaces: Ventricles are normal in size and shape. Basal cisterns are patent. No extra-axial fluid collections. Brain: No significant abnormality of the brain can be seen. Skull and face: Calvarium and facial bones appear intact, without suspicious lesions. Orbits appear normal. Sinuses: Sinuses and mastoids are clear. HEAD CT ANGIOGRAPHY: Anterior circulation: Intracranial internal carotid arteries are normal in size and flow. The flow within the paired anterior cerebral arteries is normal and symmetric. The flow within the middle cerebral arteries is normal and symmetric. The anterior communicating artery is seen. No aneurysms are seen. Posterior circulation: Visualized portions of the vertebral arteries demonstrate normal caliber, and join to form a normal appearing basilar artery. Flow within the posterior cerebral arteries is normal and symmetric. No aneurysms are seen. NECK CT ANGIOGRAPHY: Carotid system: The great vessels demonstrate a conventional anatomy as they arise from the aortic arch. The origins of the common carotid arteries appear patent. The common carotid arteries demonstrate normal caliber and courses. The bifurcation regions are both widely patent. The internal carotid arteries demonstrate normal calibers and courses. Posterior circulation: The origins of the vertebral arteries both appear widely patent. The more superior extracranial portions of both vertebral arteries also demonstrate normal courses and calibers. They join to form a normal appearing basilar artery. Soft tissues: Visualized neck soft tissues demonstrate no suspicious abnormalities. Bones: No suspicious bony lesions. Visualized cervical spine appears normally aligned. IMPRESSION: No significant intracranial arterial abnormality is seen. No significant abnormality is seen within the arteries of the neck. Any quantitative measurements of stenosis were performed using NASCET criteria. Dictated by: Jose Chapman M.D. on 10/17/2023 at 10:46 Approved by: Jose Chapman M.D. on 10/17/2023 at 10:50
== END 2023-10-17 11:29 | disposition home or self-care (01) ==
PROVIDERS: Emergency Provider Student in an Organized Health Care Education/Training Program; PCP Physician Assistant
DX: R53.1 Weakness (principal); R07.9 Chest pain, unspecified; Z79.899 Other long term (current) drug therapy; Z11.52 Encounter for screening for COVID-19
CPT/HCPCS: 36415; 70450; 70496; 70498; 71046; 80053; 81001; 82550; 82962; 84484; 85025; 85610; 85730; 87635; 93005; 99283; 99284; Q9967

== ENCOUNTER → 2024-01-25 16:06 | Outpatient (CLI) | payer OTHER, SELFPAY ==
[2019-09-24 09:17] VITALS: BMI 31.0
--- NOTE | 2024-01-25 16:17 | DI.MG.S_ITS ---
BILATERAL DIGITAL SCREENING MAMMOGRAM 3D/2D WITH CAD: 01/25/2024 CLINICAL: Routine screening. Family history of breast cancer. Comparison is made to exams dated: 12/12/2022 mammogram, 11/24/2021 mammogram, and 05/04/2020 mammogram - [facility]. The breasts are heterogeneously dense, which may obscure small masses (category c / 51-75% glandular tissue). Current study was also evaluated with a Computer Aided Detection (CAD) system. There is a biopsy clip in the right breast. No significant masses, calcifications, or other findings are seen in either breast. There has been no significant interval change. IMPRESSION: NEGATIVE There is no mammographic evidence of malignancy. A 1 year screening mammogram is recommended. Based on the Tyrer Cuzick model (a risk assessment model) the patient's lifetime risk is 15.9% and her 10 year risk is 8.5%. According to the ACR, ACS, and NCCN guidelines, an annual breast MRI exam along with mammogram is recommended if the patient's lifetime risk is 20% or greater. This exam was interpreted at Station ID: [id number]. NOTE: For mammograms, a report in lay terms will be sent to the patient. Approximately 15% of breast malignancies will not be visualized mammographically. In the management of a palpable breast mass, a negative mammogram must not discourage biopsy of a clinically suspicious lesion. Electronically Signed By: Dilma fernández/mike:01/25/2024 16:37:56 letter sent: Normal Exam ACR BI-RADS Category 1: Negative
== END ==
PROVIDERS: PCP Physician Assistant; Referring Provider Physician Assistant; Visit Provider Physician Assistant
DX: Z12.31 Encounter for screening mammogram for malignant neoplasm of breast (principal); Z80.3 Family history of malignant neoplasm of breast; R92.333 Mammographic heterogeneous density, bilateral breasts
CPT/HCPCS: 77063; 77067

== ENCOUNTER 2024-06-02 18:11 | Emergency (ER) | payer OTHER, SELFPAY ==
[2019-09-24 09:17] VITALS: BMI 31.0
[2024-06-02 18:13] VITALS: BP 181/96; PULSE 70; RESP 18; TEMP 37.3; O2SAT 96; BMI 32.3
[2024-06-02] MEDS: ACETAMINOPHEN 325 MG TABLET 975 MG PO (20:04)
--- NOTE | 2024-06-03 11:25 | ED.BACK ---
HPI - Back Pain/Injury <Nichelle Mckeon PA-C - Last Filed: 06/03/24 11:39> General Chief Complaint: Back Pain/Injury Stated Complaint: back px Time Seen by Provider: 06/02/24 19:49 Source: patient History of Present Illness HPI Narrative: 68-year-old female with past medical history chronic back pain, nephrolithiasis, rheumatoid arthritis, osteoarthritis, depression, anxiety presents to the ED with 6 weeks of mid back pain, radiating into the right groin. Patient also endorses some intermittent numbness of the front of the right thigh. Patient does endorse she has a history of nephrolithiasis. Patient denies tingling, weakness, saddle paresthesias, urinary hesitancy, dysuria. Patient states that the pain is aggravated with twisting motions and movements. Patient has been seeing a chiropractor for the last 2 weeks with no improvement. Related Data Home Medications Medication Instructions Recorded Confirmed temazepam 7.5 mg capsule 7.5 mg PO ONCE PM PRN 05/09/24 05/09/24 triamcinolone acetonide 0.1 % topical 05/09/24 05/09/24 topical ointment Previous Rx's Medication Instructions Recorded fluticasone 100 mcg-salmeterol 50 1 ea inhalation BID #60 ea 06/22/20 mcg/dose blistr powdr for inhalation (Advair Diskus) albuterol sulfate 90 mcg/actuation See Rx Instructions .Route 08/03/20 aerosol inhaler .COMPLEX #6.7 grams sertraline 100 mg tablet 150 mg (1.5 x 100 mg) PO DAILY 05/18/21 #135 tabs meloxicam 15 mg tablet See Rx Instructions .Route 10/18/21 .COMPLEX #90 tabs azelastine 0.05 % eye drops 1 drp EYE-BOTH BID #6 mL 09/29/23 Allergies Allergy/AdvReac Type Severity Reaction Status Date / Time hydroxychloroquine Allergy Severe RASH FROM Verified 05/09/24 12:24 [HYDROXYCHLOROQUINE] PLAQUENIL hydrocodone [HYDROCODONE] Allergy Intermediate Itching, Verified 05/09/24 12:24 irritation, nausea oxycodone [OXYCODONE] Allergy Intermediate Itching, Verified 05/09/24 12:24 irritation, nausea indomethacin [INDOMETHACIN] AdvReac Severe FELT LIKE Verified 05/09/24 12:24 I WAS ON FIRE/PAIN Review of Systems <Nichelle Mckeon PA-C - Last Filed: 06/03/24 11:39> Constitutional Constitutional: Denies chills, Denies fatigue, Denies fever(s), Denies frequent falls, Denies lethargy and Denies weakness Eyes Eyes: Denies change in vision, Denies eye discharge, Denies irritation and Denies loss of vision ENT Ears, Nose, Mouth, and Throat: Denies change in voice, Denies dizziness, Denies neck pain, Denies sore throat and Denies throat swelling Cardiovascular Cardiovascular: Denies chest pain, Denies irregular heart rhythm, Denies lightheadedness, Denies palpitations, Denies dyspnea, Denies dyspnea on exertion and Denies orthopnea Respiratory Respiratory: Denies cough, Denies dyspnea, Denies dyspnea on exertion and Denies wheezing Gastrointestinal Gastrointestinal: Denies abdominal pain, Denies change in bowel habits, Denies diarrhea, Denies nausea and Denies vomiting Genitourinary Comments: No urinary hesitancy, dysuria Musculoskeletal Musculoskeletal: Denies neck pain and Denies numbness Comments: Bilateral mid back pain, R groin pain. Intermittent R thigh numbness Integumentary/Breasts Skin/Breast: Denies pruritus, Denies erythema, Denies rash and Denies wounds Neurologic Neurologic: Denies behavioral changes, Denies confusion, Denies dizziness, Denies frequent falls, Denies loss of vision, Denies numbness and Denies weakness Psychiatric Psychiatric: Denies anxiety, Denies behavioral changes, Denies confusion, Denies depression, Denies homicidal ideation and Denies suicidal ideation Endocrine Endocrine: Denies fatigue, Denies flushing and Denies palpitations Hematologic/Lymphatic Hematologic/Lymphatic: Denies easy bruising Allergic/Immunologic Allergic/Immunologic: Denies urticaria, Denies throat swelling and Denies wheezing Patient History <Nichelle Mckeon PA-C - Last Filed: 06/03/24 11:39> Medical History Right thigh pain Right shoulder pain Nephrolithiasis Patient has active durable power of assistant attorney general (DPOA) designee for healthcare Mitral regurgitation Cat allergies Obstructive sleep apnea (adult) (pediatric) Spell of altered cognition Grief On antiepileptic therapy Thoracic spine fracture Fracture of sacrum Head injury (~2013) Anemia Easy bruisability Rheumatoid arthritis in remission Neck pain Arthritis Low back pain Endometriosis Tricuspid valve regurgitation Bronchitis Pneumonia Sleep apnea Asthma RLS (restless legs syndrome) Numbness Migraines Seizure disorder (11/04/14) Surgical History History of surgery on arm S/P foot surgery, right Hx of tonsillectomy Status post bilateral cataract extraction Status post cholecystectomy History of cataract removal with insertion of prosthetic lens Status post laparoscopy Family History Brother Age: 69 Diabetes mellitus Obesity Grandmother Rheumatoid aortitis CAD (coronary artery disease) Mother Age: 94 Osteoarthritis Heart murmur Hypertension Social History household members: significant other alcohol intake: current alcohol intake frequency: a few times a week Exam <Nichelle Mckeon PA-C - Last Filed: 06/03/24 11:39> Narrative Exam Narrative: Const General:?cooperative, healthy appearing and comfortable [facility] Head:?normal to inspection Ears:?hearing grossly normal bilaterally Nose:?external nose normal Face and sinus:?normal facial exam and sinuses nontender Mouth:?oral mucosae normal Throat:?posterior oropharynx normal Eyes General:?appearance normal, both eyes and all related structures Neck Neck:?normal visual inspection and no lymphadenopathy noted Resp Effort & Inspection:?normal respiratory effort Auscultation:?clear to auscultation bilaterally Cardio Rate:?regular rate Rhythm:?regular rhythm Musculoskeletal No midline tenderness to palpation. No paraspinal tenderness to palpation. There is full range of motion. Strength and sensation is intact. Neurovascularly intact. Neuro General:?patient alert, patient awake and patient oriented x3 Initial Vital Signs Initial Vital Signs: Vital Signs Temperature 99.1 F 06/02/24 18:13 Pulse Rate 70 06/02/24 18:13 Respiratory Rate 18 06/02/24 18:13 Blood Pressure 181/96 H 06/02/24 18:13 Pulse Oximetry 96 06/02/24 18:13 Oxygen Delivery Method Room Air 06/02/24 18:13 <Kenneth Dodson MD - Last Filed: 06/04/24 06:52> Initial Vital Signs Initial Vital Signs: Vital Signs Temperature 99.1 F 06/02/24 18:13 Pulse Rate 70 06/02/24 18:13 Respiratory Rate 18 06/02/24 18:13 Blood Pressure 181/96 H 06/02/24 18:13 Pulse Oximetry 96 06/02/24 18:13 Oxygen Delivery Method Room Air 06/02/24 18:13 Course <Nichelle Mckeon PA-C - Last Filed: 06/03/24 11:39> Orders Ordered: Discontinued Medications Acetaminophen (Acetaminophen 325 Mg Tablet) 975 mg PO NOW ONE Stop: 06/02/24 19:38 Last Admin: 06/02/24 20:04 Dose: 975 mg Documented By: VALENTINA <Kenneth Dodson MD - Last Filed: 06/04/24 06:52> Orders Ordered: Discontinued Medications Acetaminophen (Acetaminophen 325 Mg Tablet) 975 mg PO NOW ONE Stop: 06/02/24 19:38 Last Admin: 06/02/24 20:04 Dose: 975 mg Documented By: VALENTINA MDM - Back Pain/Injury <Nichelle Mckeon PA-C - Last Filed: 06/03/24 11:39> Lab Data Labs: Urine Dip Bedside Urine Glucose Negative Bedside Urine Bilirubin - Negative Bedside Urine Ketone - Negative Urine Specific Rochelle 1.015 Bedside Urine Occult Blood - Negative Bedside Urine pH 6.0 Bedside Urine Protein - Negative Bedside Urine Urobilinogen - Negative Bedside Urine Nitrite - Negative Bedside Urine Leukocytes - Negative Esterase [facility] Narrative Medical decision making narrative: 68-year-old female with past medical history chronic back pain, nephrolithiasis, rheumatoid arthritis, osteoarthritis, depression, anxiety presents to the ED with 6 weeks of mid back pain, radiating into the right groin. History and physical exam most consistent with a musculoskeletal sprain/strain of the back. Physical exam is reassuring for no midline tenderness to palpation, paraspinal tenderness to palpation. There is full range of motion. Strength and sensation is intact. Patient is neurovascularly intact. Unlikely kidney stones given the history and reproducibility with movements. UA was obtained which was negative. Recommend patient continue the meloxicam and muscle relaxants. Recommend follow-up with PCP as soon as possible. ED return precautions discussed with patient. Patient verbalized understanding. Medical records reviewed: Yes <Kenneth Dodson MD - Last Filed: 06/04/24 06:52> Lab Data Labs: Urine Dip Bedside Urine Glucose Negative Bedside Urine Bilirubin - Negative Bedside Urine Ketone - Negative Urine Specific Rochelle 1.015 Bedside Urine Occult Blood - Negative Bedside Urine pH 6.0 Bedside Urine Protein - Negative Bedside Urine Urobilinogen - Negative Bedside Urine Nitrite - Negative Bedside Urine Leukocytes - Negative Esterase Discharge Plan Departure Patient Disposition: Home Clinical Impression: Back strain Qualifiers: Encounter type: initial encounter Qualified Code(s): S39.012A - Strain of muscle, fascia and tendon of lower back, initial encounter Instructions: DI for Back Strain or Sprain Activity Restrictions/Additional Instructions: You were evaluated in the ED today for back pain. Your symptoms are likely due to a musculoskeletal sprain/strain of the lower back. May continue to take the meloxicam, muscle relaxants and Tylenol for pain. Please follow-up with your PCP as soon as possible for further evaluation and referral to physical therapy. Return to the ED if you have worsening symptoms, urinary difficulties. Prescriptions: No Action triamcinolone acetonide 0.1 % ointment topical temazepam 7.5 mg capsule 7.5 mg PO ONCE PM PRN azelastine 0.05 % drops 1 drp EYE-BOTH BID Qty: 6 0RF fluticasone propion-salmeterol [Advair Diskus] 100-50 mcg/dose blister with device 1 ea INHALATION BID Qty: 60 1RF albuterol sulfate 90 mcg/actuation HFA aerosol inhaler See Rx Instructions .ROUTE .COMPLEX Qty: 6.7 0RF Dose Instruction: INHALE 2 PUFF BY MOUTH INHALATION EVERY 4 TO 6 HOURS NEEDED FOR SHORTNESS OF BREATH OR WHEEZING Rx Instructions: INHALE 2 PUFF BY MOUTH INHALATION EVERY 4 TO 6 HOURS NEEDED FOR SHORTNESS OF BREATH OR WHEEZING sertraline 100 mg tablet 150 mg PO DAILY Qty: 135 0RF meloxicam 15 mg tablet See Rx Instructions .ROUTE .COMPLEX Qty: 90 1RF Hold Instructions: while taking prednisone Dose Instruction: Take 1 tablet (15 mg) by mouth daily Rx Instructions: Take 1 tablet (15 mg) by mouth daily Referrals: Ena Blanca PA-C [Primary Care Provider] - Stand Alone Forms: Patient Portal/API/Survey ED Sign-out <Kenneth Dodson MD - Last Filed: 06/04/24 06:52> Cosign ED Attending Cosignature Attestation: I was immediately available in the department for consultation. This documentation has been reviewed and I agree with assessment and plan. Supervised by Kenneth Dodson MD
== END 2024-06-02 20:07 | disposition home or self-care (01) ==
PROVIDERS: Emergency Provider Student in an Organized Health Care Education/Training Program; PCP Physician Assistant
DX: S39.012A Strain of muscle, fascia and tendon of lower back, initial encounter (principal); R20.0 Anesthesia of skin; X58.XXXA Exposure to other specified factors, initial encounter
CPT/HCPCS: 81003; 99283

== ENCOUNTER → 2024-06-10 18:50 | Outpatient (CLI) | payer OTHER, SELFPAY ==
[2019-09-24 09:17] VITALS: BMI 31.0
--- NOTE | 2024-06-10 | DI.MRI.S_ITS ---
PROCEDURE: MR LUMBAR SPINE WO CON INDICATIONS: ACUTE RT SIDED LOW BACK PAIN TECHNIQUE: Noncontrast sagittal T1 spin echo and T2 fast echo, sagittal STIR, and T2 fast spin echo through the lumbar spine. In cases with scoliosis, additional coronal T2 fast spin echo may be performed. COMPARISON: [facility], CT, CT KUB, 06/20/2021, 16:07. [facility], MR, MR LUMBAR SPINE WO CON, 06/10/2021, 8:55. FINDINGS: Image quality: Diagnostic, with note made of motion artifact. Alignment and Curvature: There is mild retrolisthesis at L1-L2, with minimal retrolisthesis at L2-L3 and L3-L4. Mild grade 1 anterolisthesis is seen at L4-L5, without associated pars defects. There is minimal anterolisthesis seen at L5-S1. [id number] S shaped scoliosis is seen. Bone Marrow: Marrow is of normal overall signal. No acute vertebral body compression fractures. There is a remote, stable T12 anterior wedge deformity. Spinal Cord: Conus medullaris terminates at the L1 level. Visualized cord demonstrates normal signal and size. Paraspinous Soft Tissues: No paravertebral masses. T12-L1: Moderate to severe loss of disc height and disc signal can be seen. Moderate generalized disc bulge is seen. There is a superimposed central disc osteophyte protrusion. Mild facet joint hypertrophy is seen. There is moderate right-sided and moderate to severe left-sided neural foraminal narrowing. There is a degree of compression seen upon the exiting nerve roots. Moderate central canal narrowing is seen. When comparison is made with the prior images, these findings are similar. L1-L2: The disc height is well-preserved. Loss of disc signal is seen at this level. Moderate disc bulge is seen. There is a superimposed central disc protrusion. Mild to moderate facet hypertrophy can be seen. There is at least moderate bilateral neural foraminal narrowing seen. Moderate central canal narrowing is seen. There is slight progression compared to 2021. L2-L3: Moderate loss of disc height is seen. Loss of disc signal is seen. Moderate disc bulge is seen, which is eccentric to the right. There is a superimposed central disc protrusion. There is moderate to prominent right-sided and [id number] left-sided facet hypertrophy. There is at least moderate left-sided and moderate to severe right-sided neural foraminal narrowing. There is a degree of compression seen upon the exiting right L2 nerve root. These imaging findings have progressed compared to the prior study. L3-L4: There is at least moderate loss of disc height and disc signal seen. Moderate disc bulge is seen, which is eccentric to the right. There is a superimposed central disc osteophyte protrusion. Mild to moderate facet hypertrophy is seen. Associated hypertrophy of the ligamentum flavum can be seen. There is moderate left-sided neural foraminal narrowing. Moderate to severe right-sided neural foraminal narrowing is seen, with a degree of compression seen upon the exiting right L3 nerve root. Mild to moderate central canal narrowing is seen. These imaging findings have progressed compared to the prior study. L4-L5: There is at least moderate loss of disc height and disc signal seen. At least moderate disc bulge is seen. There is a superimposed central disc osteophyte protrusion. Prominent facet hypertrophy can be seen at this level. There is moderate to severe bilateral neural foraminal narrowing seen, with an associated degree of compression seen upon the exiting nerve roots. There is moderate to severe central canal narrowing seen, as on series 6, image 26. There is slight progression of degenerative change compared to the prior. L5-S1: At least moderate loss of disc height and disc signal can be seen. Moderate generalized disc bulge is seen. There is a superimposed central disc osteophyte protrusion. Mild to moderate facet hypertrophy can be seen. There is moderate to severe bilateral neural foraminal narrowing seen, with an associated degree of compression seen upon the exiting nerve roots. Moderate central canal narrowing is seen. When comparison is made with the prior images, these findings are similar. IMPRESSION: Multiple levels of lumbar spine degenerative change can be seen, which are overall worst inferiorly. Several sites of significant neural foraminal narrowing can be seen, with associated exiting nerve root compression. The degenerative changes are progressed at a few levels compared to 2021. Dictated by: Ronen Marcial M.D. on 06/11/2024 at 11:57 Approved by: Ronen Marcial M.D. on 06/11/2024 at 12:05
== END ==
LOC: MRI 18:52
PROVIDERS: PCP Physician Assistant; Referring Provider Physician Assistant; Visit Provider Physician Assistant
DX: M51.16 Intervertebral disc disorders with radiculopathy, lumbar region (principal); M47.26 Other spondylosis with radiculopathy, lumbar region; M47.27 Other spondylosis with radiculopathy, lumbosacral region; M48.061 Spinal stenosis, lumbar region without neurogenic claudication; M48.07 Spinal stenosis, lumbosacral region
CPT/HCPCS: 72148